=== PATIENT | female | born 1970 | race Caucasian/White ===

== ENCOUNTER 2019-05-17 08:57 | Emergency (ER) | payer SELFPAY ==
[~2019-05-17] VITALS: Ht 170.2 cm; Wt 86.2 kg
--- OUTSIDE RECORDS SUMMARY | ~2019-05-17 | XMS | Encounter Summary ---
Demographics + + + | Address | [address] | | | [place] [address] | + + + | Home Phone | | + + + | Preferred Language | Unknown | + + + | Marital Status | | + + + | Alevism Affiliation | 1041 | + + + | Race | Unknown | + + + | Ethnic Group | Unknown | + + + Author + + + | Author | [facility] | | | and [place] | + + + | Organization | [facility] | | | and [place] | + + + | Address | Unknown | + + + | Phone | Unavailable | + + + Support + + +---------+ + | Name | Relationship | Address | Phone | + + +---------+ + | Fredy Ayers | ECON | Unknown | | + + +---------+ + Care Team Providers + +------+ + | Care Vocal Performer Name | Role | Phone | + +------+ + | Sharita Wise | PCP | | + +------+ + Reason for Visit + + + | Reason | Comments | + + + | Follow-up | | + + + Follow Up (Routine) + +--------+ + + + + | Status | Reason | Specialty | Diagnoses / | Referred By | Referred To | | | | | Procedures | Contact | Contact | + +--------+ + + + + | Authorized | | Physical | Diagnoses | Wise, | Palmer, | | | | Medicine and | Low back | NIVIA Sheriff | Ha Trivedi MD | | | | Rehabilitatio | pain | [address] | | | | n | | [facility], | [facility] | | | | | | [address] | [place] | | | | | | [place], | [address] Phone: | | | | | | [place] [address] | [phone] | | | | | | Phone: | Fax: | | | | | | [phone] | [phone] | | | | | | Fax: | | | | | | | [phone] | | + +--------+ + + + + Encounter Details +--------+---------+ + + + | Date | Type | Department | Care Team | Description | +--------+---------+ + + + | 04/24/ | Office | [facility] | Mignon Serrano | Lumbar radiculopathy | | 2019 | Visit | PHYSIATRY [address] | HAMZAH Phelan [address] | (Primary Dx); [address] | | | | [address] [place], | [address] | of lumbar disc | | | | [place] [address] | [address] [place], [place] | without myelopathy; | | | | [phone] | [address] | Obesity (BMI | | | | | | 30-39.9) | +--------+---------+ + + + Social History + + + +--------+ + | Tobacco Use | Types | Packs/Day | Years | Date | | | | | Used | | + + + +--------+ + | Former Smoker | Cigarettes | 1 | 20 | 01/14/1997 - | | | | | | 09/27/2018 | + + + +--------+ + + +---+---+---+ | Smokeless Tobacco: | | | | | Former User | | | | + +---+---+---+ + + +---------+ + | Alcohol Use | Drinks/Week | oz/Week | Comments | + + +---------+ + | Yes | | | occasionally | + + +---------+ + + + + | Sex Assigned at | Date Recorded | | | | + + + | Not on file | | + + + + + + + | Job Start Date | Occupation | Industry | + + + + | Not on file | Not on file | Not on file | + + + + + + + + | Travel History | Travel Start | Travel End | + + + + + + | No recent travel history available. | + + documented as of this encounter Last Filed Vital Signs + + + + + | Vital Sign | Reading | Time Taken | Comments | + + + + + | Blood Pressure | 137/74 | 04/24/2019 9:52 AM | | | | | PST | | + + + + + | Pulse | 60 | 04/24/2019 9:52 AM | | | | | PST | | + + + + + | Temperature | - | - | | + + + + + | Respiratory Rate | - | - | | + + + + + | Oxygen Saturation | - | - | | + + + + + | Inhaled Oxygen | - | - | | | Concentration | | | | + + + + + | Weight | 107.5 kg (237 lb) | 04/24/2019 9:52 AM | | | | | PST | | + + + + + | Height | 165.1 cm (5' 5") | 04/24/2019 9:52 AM | | | | | PST | | + + + + + | Body Mass Index | 39.44 | 04/24/2019 9:52 AM | | | | | PST | | + + + + + documented in this encounter Patient Instructions Patient Instructions Mignon Serrano PA-C - 04/24/2019 10:00 AM PST1. A left and ri ght side epidural steroid injection at L4 order has been placed. We will call you to madelaine recinos once authorized. 2. We may need to get a lumbar MRI if your numbness in the left thigh persists or you deve lop weakness. Follow-up at the hospital thirty minutes before your scheduled procedure to allow for time to check in. You may eat and drink as usual on the day of the procedure. If you are scheduled for an epidural injection do not take any blood thinning medications f or at least 5-7 days prior to your procedure unless you have been instructed by another phys ician not to discontinue blood thinning medications. If you are having a procedure other than an epidural injection (i.e. facet injection, media l branch block, SI joint injection or other joint injection) it is not absolutely necessary to discontinue blood thinning medications but doing so will decrease the risk of bruising or bleeding. If you have had a prior stroke, DVT or PE or if you are taking blood thinning medication be cause you have atrial fibrillation, a prosthetic cardiac valve replacement or heart stenting do not stop taking your blood thinning medications unless you have permission from your car diologist or primary care provider. All other medications should be taken as usual on the day of the procedure. Common blood thinning medications include: Aspirin (a baby aspirin is o.k.) Ibuprofen (Advil or Motrin) Naproxen (Aleve) Nabumetone (Relafen) Clopidogrel (Plavix) Dipyridamole/ASA (Aggrenox) Warfarin (Coumadin) Dabigatran (Pradaxa) Rivaroxaban (Xarelto) There are many others. If you have questions about your medications and whether or not you should stop any medications please contact our office. If you are having an epidural injection or if you take any medication for relaxation/sedati on on the day of the procedure you must provide a yard driver to take you home. For all procedur es it is recommended that someone else drive you home. documented in this encounter Progress Notes Mignon Serrano PA-C - 04/24/2019 10:00 AM PSTFormatting of this note might be diffe rent from the original. Zhane Serrano PA-C [address] [facility], [address] [place], [place] [id number] FAX: PHYSICAL MEDICINE AND REHABILITATION H&P CHIEF COMPLAINT: Chief Complaint Patient presents with Follow-up HISTORY OF PRESENT ILLNESS: The patient is a 48 y.o. female being seen today for complaint s of right side low back pain with radiation into the right leg that began August 2016 from n o known injury or insult. Patient was last seen for this on 02/27/2019 where we discussed r epeating right sided TFESI L4-5. At the time her pain was not severe and just recurring so she elected to wait on scheduling this injection. Today she presents with complaints of new left lower extremity pain and numbness in the lateral thigh ending at the knee. Patient underwent physical therapy in 2017 prior to injections. Her pain was so severe lee t she had to take off work for 2 months to help heal. Her MRI shows a disc extrusion causin g severe right neuroforaminal narrowing causing her pain. Since she was last seen she has q uit smoking x5 months. Since the symptoms began, she has noticed that symptoms have been progressive to include le ft lateral thigh pain and numbness. She is having a difficult time getting in and out of he r vehicle. She describes the pain as a aching, numbing and throbbing feeling. She rates the pain as mild to moderate. Her symptoms worsen with prolonged standing, walking, sitting. He r symptoms improve with changing position often, lying down, leaning forward. The patient also describes leg symptoms that occur on right side. The leg symptoms account for greater than or equal to 75% of her symptoms. The leg symptoms are in an L4 dermatome bilateral at this time include some pain and numbness. She has chronic sensation changes in the right anterior tibialis and acute sensation changes and numbness left lateral thigh. She does not report weakness of the right leg with extreme pain. She does not have bowel a nd bladder dysfunction. She does not have saddle anesthesia. Treatments for these complaints have included physical therapy at [facility], use of gabapentin 600mg at night which she states helps her sleep but does not help with pain, use of cyclobenzaprine, use of Medrol dose pack which did not help, use of a friends Oxycodone which did help but her PCP does not want to start her on narcotics, previous tramadol shot a nd unguided right SI joint injection which was uneffective, use of NSAIDS and a TFESI which was successful on 02/04/2017. Patient's medications, allergies, past medical, surgical, social and family histories were reviewed and updated as appropriate. PAST MEDICAL HISTORY: Past Medical History: Diagnosis Date Bulge of lumbar disc without myelopathy 01/26/2017 Chronic constipation Chronic right-sided low back pain with right-sided sciatica 01/19/2017 Diabetes mellitus (HCC) Edema Hypertension Low back pain Lumbar radiculopathy - right L4/L5 01/26/2017 Muscle spasm of back Nicotine dependence Sacroiliitis (HCC) Right side Tobacco use PAST SURGICAL HISTORY: Past Surgical History: Procedure Laterality Date APPENDECTOMY 2000 [facility] COLONOSCOPY 01/19/2013 One polyp CURRENT MEDICATIONS: Current Outpatient Medications Medication Sig Dispense Refill escitalopram (LEXAPRO) 10 mg tablet famotidine (PEPCID) 20 mg tablet Take 20 mg by mouth. gabapentin (NEURONTIN) 300 mg capsule Take 600 mg by mouth nightly. hydroCHLOROthiazide (HYDRODIURIL) 12.5 MG tablet LORazepam (ATIVAN) 1 mg tablet losartan-hydrochlorothiazide (HYZAAR) 50-12.5 MG per tablet medroxyPROGESTERone (DEPO-PROVERA) 150 mg/mL injection (vial) Inject 150 mg into the mu scle Every 3 months. metFORMIN (GLUCOPHAGE) 500 mg tablet traMADol (ULTRAM) 50 mg tablet 0 No current facility-administered medications for this visit. ALLERGIES: No Known Allergies SOCIAL HISTORY: The patient reports that she quit smoking about 6 months ago. Her smoking use included cig arettes. She started smoking about 22 years ago. She has a 20.00 pack-year smoking history. She has quit using smokeless tobacco. She reports current alcohol use. She reports that she does not use drugs. FAMILY HISTORY: Family History Problem Relation Age of Onset Stroke Mother Kidney disease Mother Other (see comment) Mother Brain Tumor Diabetes Mother Arthritis Mother Heart attack Father 56 Thyroid disease Sister Breast cancer Maternal Grandmother 30 Heart disease Maternal Grandfather Diabetes Paternal Grandfather Diabetes Paternal Grandmother REVIEW OF SYSTEMS: GENERALLY: No fever, chills, no night sweats, no weight gain, no weight loss, no anemia, no fatigue. EYES: No eye problems, no impaired sight, no eye glasses/contacts, no eye injury, no doubl e vision, no transient blindness. 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 NEUROMUSCULAR: No numbness/pain of arms, + numbness/pain of legs, no awake with numbness/p ain, + weakness, + muscle aching, no coordination difficulty, + change in walk, no head inju ry, no neck injury, no back injury, no pain in neck, + pain in back, no stroke, no fainting spells, no loss of consciousness, no tremor/shaking, no seizures, no headaches, no migraines , no memory loss, no speech difficulty, no confusion, no numbness of face. PSYCHIATRIC: No depression, no difficulty sleeping, +anxiety, no bipolar disorder. CARDIOVASCULAR/PULMONARY: No heart attack, no heart murmur, no fluttering heart, no shortn ess of breath, no cough, no Tuberculosis, no chest pain, no swelling ankles, no bloody cough ing, no asthma, no COPD/emphysema. GASTROINTESTINAL: No bowel disease, no nausea/vomiting, no rectal bleeding/hemorroids, no constipation, no fecal/stool incontinence, no liver/gallbladder disease, no abdominal pain. KIDNEY DISEASE: No frequent urination, no painful/difficult with urination, no urinary inco ntinence, no bladder problems, no impotence, no irregular period, no vaginal discharge. ENDOCRINE: No diabetes, no thyroid disease, no osteoporosis/osteopenia, no drainage from br easts. INTEGUMENTARY/SKIN: No lump in breasts, no skin disease or skin changes, no rash/itch. HEMATOLOGIC: No enlarged lymph nodes, no ease or unusual bleeding, no cancer. RHEUMATOLOGIC: No joint pain/arthritis, no Rheumatoid Arthritis PHYSICAL EXAMINATION: Vitals: 04/24/19 0952 BP: 137/74 Pulse: 60 PainSc: 2 PainLoc: Back Body mass index is 39.44 kg/m. GENERAL: The patient is well developed and well nourished. She does not appear uncomfortab le when seated. HEENT: HEAD/FACE: EYES: EARS: NASOPHARNYX: OROPHARNYX: Normocephalic and atraumatic. There are no areas of recent trauma. Normal sclerae without icterus. No drainage or tenderness. Clear without drainage. Clear without erythema. SKIN Limited skin exam shows no significant rashes or lesions. There are not scars in the lumbar region. CHEST: The patient is in no acute respiratory distress with unlabored respirations. HEART: There is not lower extremity edema. ABDOMEN: The patient is overweight. She reports having lost 25 pounds. MUSCULOSKELETAL There is no tenderness in the midline of the cervical or thoracic spine. T here is no major palpable deformity of the spine. Straight leg raise was negative on right and slump-sit are negative. Arthur's maneuver an d impingement testing were negative for any groin pain. There was no tenderness to palpati on over the greater trochanters or sacral sulci. The patient localized the majority of the pain to the L4-5 bilateral region. Lumbar facet loading was negative. Strength testing ariela wed 5/5 strength throughout the lower extremities. The patient was able to heel and toe wal k without difficulty. RADIOGRAPHIC REVIEW: The patient's imaging was reviewed in detail with the patient today during the visit. Lumb ar xray in AP and Lateral view from shows good vertebral alignment, good disc space between vertebra. ASSESSMENT: 1. Lumbar radiculopathy 2. Bulge of lumbar disc without myelopathy 3. Obesity (BMI 30-39.9) PLAN: 1. Patient is a 48-year-old who was last seen for TFESI right L4-5 on 02/04/2017 who return s today to report that she had exceptional relief for almost 2 years. At last presentation February 27, 2019 she was having recurrence of right-sided lower extremity pain and presents today with reports of left-sided L4 radiculopathy including numbness and pain in the lateral thigh ending at the knee. Patient has agreed to undergo change in her TFESI order to bilat eral at L4-5. 2. Patient has been able to stay off of pain medications and adjuvant medications except f or gabapentin. She will continue the gabapentin and is currently taking this at 600 mg at [facility]. 3. Patient has successfully quit smoking and is working on weight loss. She will continue with weight loss efforts 4. Patient will follow up as needed. We did discuss considering an MRI if her left leg nu mbness persists or progresses to weakness. ELECTRONICALLY SIGNED BY: Julio Serrano PA-C, 04/24/2019 CC: Sharita Wise documented in this encounter Plan of Treatment Not on filedocumented as of this encounter Results FL AGUSTINA Lumbar Sacral Transforaminal (05/10/2019 11:27 AM PST) + + | Specimen | + + | | + + + + -+ | Narrative | Performed At | + + -+ | 05/10/2019 | [facility] | | Bilateral Transforaminal Epidural Steroid Injections Diagnosis: Lumbar | | | radiculopathy ICD-10 Code M54.16 Katalina Ayers presents to the | | | fluoroscopy suite for fluoroscopically-guided bilateral L4-L5 | | | transforaminal epidural steroid injections as part of conservative | | | management for chronic pain with lumbar radiculopathy and degenerative | | | disc disease. After informed consent was obtained, the patient lay in | | | the prone position on the fluoroscopy table. The areas were | | | identified under fluoroscopic guidance. The areas were prepped and | | | draped in sterile fashion. A 25-gauge, 1.5-inch needle was inserted | | | into each region and approximately 3 mL of buffered 1% lidocaine was | | | infused. Then, a 22-gauge spinal needle was inserted into the | | | posterior superior transforaminal space bilaterally and advanced into | | | the epidural space under fluoroscopic guidance. Confirmation into the | | | epidural space was obtained with infusion of approximately 1 mL of | | | Omnipaque contrast which showed epidural flow as well as nerve sheath | | | flow. Then, a combination of 2 mL of 1% lidocaine and 1.5 mL of 10 | | | mg/mL dexamethasone was infused, divided between the two sides. The | | | patient tolerated the procedure well without complications. Pre- and | | | post-procedure blood pressures were stable. The patient was given | | | verbal as well as written follow-up instructions. Prior to the start | | | of the procedure, the following were performed and/or verified, | | | including correct patient identity, correct site/side marked and | | | visible, agreement on the procedure to be done, correct patient | | | positioning and an accurate procedure consent form. Any safety | | | precautions based on clinical history and/or medication use have been | | | addressed. I personally performed the procedure above. Estimated blood | | | loss: MinimalComplications: NoneFindings: As expectedAnesthesia: | | | Local 1% Lidocaine | | |visible, agreement on the procedure to be done, correct patient | | |positioning and an accurate procedure consent form. Any safety precautions | | |based on clinical history and/or medication use have been addressed. I | | |personally performed the procedure above. | | | | | |Estimated blood loss: Minimal | | |Complications: None | | |Findings: As expected | | |Anesthesia: Local 1% Lidocaine | | | | | | | | + + -+ + +---------+ + + | Performing | Address | City/State/Zipcode | Phone Number | | Organization | | | | + +---------+ + + | [facility] | | | | + +---------+ + + documented in this encounter Visit Diagnoses + + | Diagnosis | + + | Lumbar radiculopathy - Primary Thoracic or lumbosacral neuritis or radiculitis, | | unspecified | + + | Bulge of lumbar disc without myelopathy Displacement of lumbar intervertebral disc | | without myelopathy | + + | Obesity (BMI 30-39.9) Obesity, unspecified | + + documented in this encounter
--- OUTSIDE RECORDS SUMMARY | ~2019-05-17 | XMS | Encounter Summary ---
Demographics + + + | Address | [address] | | | [place] [address] | + + + | Home Phone | | + + + | Preferred Language | Unknown | + + + | Marital Status | | + + + | Christianity Affiliation | 1041 | + + + | Race | Unknown | + + + | Ethnic Group | Unknown | + + + Author + + + | Author | [facility] | | | and [place] | + + + | Organization | [facility] | | | and [...] Team Providers + +------+ + | Care Car Dumper Operator Helper Name | Role | Phone | + +------+ + | Sharita Wise | PCP | | + +------+ + Encounter Details +--------+ + + + + | Date | Type | Department | Care Team | Description | +--------+ + + + + | 12/30/ | Imaging | [facility] | April, | | | 2017 | Exam | [facility] | [address] | | | | | IMAGING | [place] | | | | | [phone] | [place] [address] | | +--------+ + + + + Social History + +-------+ +--------+------+ | Tobacco Use | Types | Packs/Day | Years | Date | | | | | Used | | + +-------+ +--------+------+ | Never Assessed | | | | | + +-------+ +--------+------+ + + + | Sex Assigned at [...] + + documented as of this encounter Plan of Treatment Not on filedocumented as of this encounter Procedures + +--------+ + + + | Procedure Name | Priori | Date/Time | Associated Diagnosis | Comments | | | ty | | | | + +--------+ + + + | XR LUMBAR SPINE 4 + | Routin | 12/29/2016 | | Results for this | | VW | e | 3:35 PM | | procedure are in the | | | | PDT | | results section. | + +--------+ + + + documented in this encounter Results XR Lumbar Spine 4 + Vw (12/29/2016 3:35 PM PDT) + + | Specimen | + + | | + + + + + | Narrative | Performed At | + + + | External films for comparison only - no result from [facility]. | [facility] | + + + + +---------+ + + | Performing | Address | City/State/Zipcode | Phone Number | | Organization | | | | + +---------+ + + | [facility] | | | | + +---------+ + + documented in this encounter Visit Diagnoses Not on filedocumented in this encounter"
--- OUTSIDE RECORDS SUMMARY | ~2019-05-17 | XMS | Encounter Summary ---
Demographics + + + | Address | [address] | | | [place] [address] | + + + | Home Phone | | + + + | Preferred Language | Unknown | + + + | Marital Status | | + + + | Yazidism Affiliation | 1041 | + + + | Race | Unknown | + + + | Ethnic Group | Unknown | + + + Author + + + | Author | [facility] | | | and [place] | + + + | Organization | [facility] | | | and [...] Team Providers + +------+ + | Care Executive Vice President Of Sales Name | Role | Phone | + +------+ + | Sharita Wise | PCP | | + +------+ + Reason for Visit + + + | Reason | Comments | + + + | Injections | | + + + Encounter Details +--------+ + + + + | Date | Type | Department | Care Team | Description | +--------+ + + + + | 05/16/ | Telephone | [facility] [place] | Mignon Serrano | Injections | | 2020 | | PHYSIATRY [address] | HAMZAH Phelan [address] | | | | | [address] [place], | [address] [facility] | | | | | [place] [address] | [address] [place], [place] | | | | | [phone] | [address] | | | | | | | | +--------+ + + + + Social History + + [...] Not on filedocumented as of this encounter Visit Diagnoses Not on filedocumented in this encounter"
--- OUTSIDE RECORDS SUMMARY | ~2019-05-17 | XMS | Encounter Summary ---
Demographics + + + | Address | [address] | | | [place] [address] | + + + | Home Phone | | + + + | Preferred Language | Unknown | + + + | Marital Status | | + + + | Mandaeism Affiliation | 1041 | + + + | Race | Unknown | + + + | Ethnic Group | Unknown | + + + Author + + + | Author | [facility] | | | and [place] | + + + | Organization | [facility] | | | [...] Team Providers + +------+ + | Care Camouflage Assembler Name | Role | Phone | + [...] | | | | n | | [facility] | [facility] | | | | | | [address] | [place] | | | | | | [place], | [address] Phone: | | | | | | [place] [address] | [phone] | | | | | | Phone: | Fax: | | | | | | [phone] | [phone] | | | | | | Fax: | | | | | | | [phone] | | + +--------+ + + + [...] (Primary Dx); Bulge | | | | [place], | [address] | of lumbar disc | | | | [place] [address] | [address] [place], [place] | without myelopathy; | | | | [phone] | [address] | Obesity (BMI | | | | [...] of the procedure you must provide a transporter driver to take you home. For all procedur es it is recommended that someone else drive you home. documented in this encounter Progress Notes Mignon Serrano PA-C - 04/24/2019 10:00 AM PSTFormatting of this note might be diffe rent from the original. Zhane Serrano PA-C [address] [facility] [address] [place], [place] [id number] FAX: PHYSICAL MEDICINE AND REHABILITATION H&P CHIEF [...] these complaints have included physical therapy at [facility], use of gabapentin 600mg at night which [...] Surgical History: Procedure Laterality Date APPENDECTOMY [address] [facility] COLONOSCOPY 01/19/2013 One polyp CURRENT MEDICATIONS: [...] currently taking this at 600 mg at [facility]. 3. Patient has successfully quit smoking [...]
--- OUTSIDE RECORDS SUMMARY | ~2019-05-17 | XMS | Encounter Summary ---
Demographics + + + | Address | [address] | | | [place] [address] | + + + | Home Phone | | + + + | Preferred Language | Unknown | + + + | Marital Status | | + + + | Taoism Affiliation | 1041 | + + + | Race | Unknown | + + + | Ethnic Group | Unknown | + + + Author + + + | Author | [facility] | | | and [place] | + + + | Organization | [facility] | | | and [...] Team Providers + +------+ + | Care Equipment Operator/Laborer Name | Role | Phone | + +------+ + | Sharita Wise | PCP | | + +------+ + Reason for Visit Diagnostic/Screening (Routine) +--------+--------+ + + + + | Status | Reason | Specialty | Diagnoses / | Referred By | Referred To | | | | | Procedures | Contact | Contact | +--------+--------+ + + + + | Closed | | Radiology | Procedures | Provider, | | | | | | MRI Lumbar | Historical, | | | | | | Spine wo | [address] | | | | | | Contrast | [address] | | | | | | | [place] | | | | | | | [address] | | +--------+--------+ + + + + Encounter Details +--------+ + + + + | Date | Type | Department | Care Team | Description | +--------+ + + + + | 01/28/ | Imaging | [facility] | Provider, | | | 2017 | Exam | MED CTR EXTERNAL | MD [address] | | | | | IMAGING | [place] | | | | | [phone] | [place] [address] | | +--------+ + + + + Social History + + + +--------+ + | Tobacco Use | Types | Packs/Day | Years | Date | | | | | Used | | + + + +--------+ + | Current Every Day | Cigarettes | 1 | 20 | Started: 01/14/1997 | | Smoker | | | | | + + + +--------+ + + + +---------+ + | Alcohol Use [...] | + +--------+ + + + | MRI LUMBAR SPINE WO | Routin | 01/22/2017 | | Results for this | | CONTRAST | e | 8:15 AM | | procedure are in the | | | | PDT | | results section. | + +--------+ + + + documented in this encounter Results MRI Lumbar Spine wo Contrast (01/22/2017 8:15 AM PDT) + + | Specimen | + + | | + + + + + | Narrative | Performed At | + + + | External films | [facility] | | for comparison only - no result from [place]. | | + + + + +---------+ + + | Performing | Address | City/State/Zipcode | Phone Number | | Organization | | | | + +---------+ + + | [facility] | | | | + +---------+ + + documented in this encounter Visit Diagnoses Not on filedocumented in this encounter"
--- OUTSIDE RECORDS SUMMARY | ~2019-05-17 | XMS | Encounter Summary ---
Demographics + + + | Address | [address] | | | [place] [address] | + + + | Home Phone | | + + + | Preferred Language | Unknown | + + + | Marital Status | | + + + | Sabianism Affiliation | 1041 | + + + | Race | Unknown | + + + | Ethnic Group | Unknown | + + + Author + + + | Author | [facility] | | | and [place] | + + + | Organization | [facility] | | | [...] Team Providers + +------+ + | Care Consumer Educator Name | Role | Phone | + +------+ + | Sharita Wise | PCP | | + +------+ + Reason for Visit Service/Procedure (Routine) +--------+--------+ + + + + | Status | Reason | Specialty | Diagnoses / | Referred By | Referred To | | | | | Procedures | Contact | Contact | +--------+--------+ + + + + | Closed | | Radiology | Diagnoses | | [facility] | | | | | Lumbar | [place], | [address] | | | | | radiculopath | Ha Trivedi MD | [place], | | | | | y | [address] | [place] | | | | | Procedures | [address] | [address] | | | | | [place] INJECT | [place], [place] | Phone: | | | | | ANES/STEROID | [address] | [phone] | | | | | FORAMEN | Phone: | Fax: | | | | | LUMBAR/SACRA | [phone] | [phone] | | | | | L [address] IMG | Fax: | | | | | | GUIDE ,1 | [phone] | | | | | | LEVEL ME | | | | | | | TRIAMCINOLON | | | | | | | E ACET INJ | | | | | | | NOS, 10 MG | | | | | | | right L4/L5 | | | | | | | TFESI | | | +--------+--------+ + + + + Encounter Details +--------+ + + + + | Date | Type | Department | Care Team | Description | +--------+ + + + + | 02/04/ | Hospital | [facility] | Ayse, | Lumbar radiculopathy | | 2017 | Encounter | MED CTR XRAY [address] | [address]AMZAH [address] | - right L4/L5; | | | | [place] | [address] | Bulge of lumbar disc | | | | [place] [address] | [place] [address] | without myelopathy | | | | [phone] | | | | | | | | | | | | Field Service Poultry TechnicianEmigdio | | +--------+ + + + + [...] this encounter Last Filed Vital Signs + +---------+ + + | Vital Sign | Reading | Time Taken | Comments | + +---------+ + + | Blood Pressure | 186/116 | 02/04/2017 5:00 PM | | | | | PDT | | + +---------+ + + | Pulse | - | - | | + +---------+ + + | Temperature | - | - | | + +---------+ + + | Respiratory Rate | - | - | | + +---------+ + + | Oxygen Saturation | - | - | | + +---------+ + + | Inhaled Oxygen | - | - | | | Concentration | | | | + +---------+ + + | Weight | - | - | | + +---------+ + + | Height | - | - | | + +---------+ + + | Body Mass Index | - | - | | + +---------+ + + documented in this encounter Medications at Time of Discharge + + + +---------+--------+ + | Medication | Sig | Dispensed | Refills | Start | End Date | | | | | | Date | | + + + +---------+--------+ + | | Inject 150 mg into | | 0 | | | | medroxyPROGESTERone | the muscle Every 3 | | | | | | (DEPO-PROVERA) 150 | months. | | | | | | mg/mL injection | | | | | | | (vial) | | | | | | + + + +---------+--------+ + | buPROPion | Take 150 mg by mouth | | 0 | | | | (WELLBUTRIN SR) 150 | 2 times daily. | | | | 9 | | mg 12 hr tablet | | | | | | + + + +---------+--------+ + | CALCIUM CITRATE PO | Take by mouth. | | 0 | | 12/23/201 | | | | | | | 9 | + + + +---------+--------+ + | famotidine | Take 20 mg by mouth | | 0 | | | | (PEPCID) 20 mg | as needed. | | | | 9 | | tablet | | | | | | + + + +---------+--------+ + | furosemide (LASIX) | Take 20 mg by mouth | | 0 | | | | 20 mg tablet | 2 times daily. | | | | 9 | + + + +---------+--------+ + | gabapentin | Take 600 mg by mouth | | 0 | | | | (NEURONTIN) 300 mg | nightly. | | | | 0 | | capsule | | | | | | + + + +---------+--------+ + | metoprolol | Take 50 mg by mouth | | 0 | | | | succinate | Daily. | | | | 9 | | (TOPROL-XL) 25 mg 24 | | | | | | | hr tablet | | | | | | + + + +---------+--------+ + documented as of this encounter Plan of Treatment Not on filedocumented as of this encounter Procedures + +--------+ + + + | Procedure Name | Priori | Date/Time | Associated Diagnosis | Comments | | | ty | | | | + +--------+ + + + | FL EPIDURAL STEROID | Routin | 02/04/2017 | Lumbar | Results for this | | INJECTION LUMBAR | e | 4:49 PM | radiculopathy - | procedure are in the | | TRANSFORAMINAL | | PDT | right L4/L5 [place] | results section. | | | | | of lumbar disc | | | | | | without myelopathy | | + +--------+ + + + documented in this encounter Results FL AGUSTINA Lumbar Transforaminal (02/04/2017 4:49 PM PDT) + + | Specimen | + + | | + + + + + | Narrative | Performed At | + + + | 02/04/2017 | [facility] | | Transforaminal Epidural Steroid InjectionDiagnosis: Lumbar | | | radiculopathyICD-10 Code M54.16 Katalina Ayers presents to the | | | fluoroscopy suite for a fluoroscopically-guided right L4-L5 | | | transforaminal epidural steroid injection as part of conservative | | | management for chronic pain with lumbar radiculopathy and degenerative | | | disk disease. After informed consent was obtained, the patient lay | | | in the prone position on the fluoroscopy table. The area was | | | identified under fluoroscopic guidance. The area was prepped and | | | draped in sterile fashion. A 25-gauge, 1.5-inch needle was inserted | | | into this region and approximately 3 mL of buffered 1% lidocaine was | | | infused. Then, a 22-gauge spinal needle was inserted into the | | | posterior superior transforaminal space and advanced into the epidural | | | space under fluoroscopic guidance. Confirmation into the epidural | | | space was obtained with infusion of approximately 1 mL of Omnipaque | | | contrast which showed epidural flow as well as nerve sheath flow. | | | Then, a combination of 1.5 mL of 1% lidocaine and 1 mL of 10 | | | mg/mL Dexamethasone was infused. The patient tolerated the procedure | | | well without complications. Pre- and post-procedure blood pressures | | | were stable. The patient was given verbal as well as written | | | follow-up instructions. Prior to the start of the procedure, the | | | following were performed and/or verified, including correct patient | | | identity, correct site/side marked and visible, agreement on the | | | procedure to be done, correct patient positioning and an accurate | | | procedure consent form. Any safety precautions based on clinical | | | history and/or medication use have been addressed. I personally | | | performed the procedure above. Estimated blood loss: | | | MinimalComplications: NoneFindings: As expectedAnesthesia: Local | | | 1% Lidocaine | | |addressed. | | |I personally performed the procedure above. | | | | | |Estimated blood loss: Minimal | | |Complications: None | | |Findings: As expected | | |Anesthesia: Local 1% Lidocaine | | | | | + + + + +---------+ + + | Performing | Address | City/State[facility] | Phone Number | | Organization | | | | + +---------+ + + | [facility] | | | | + +---------+ + + documented in this encounter Visit Diagnoses + + | Diagnosis | + + | Lumbar radiculopathy - right L4/L5 Thoracic or lumbosacral neuritis or radiculitis, | | unspecified | + + | Bulge of lumbar disc without myelopathy Displacement of lumbar intervertebral disc | | without myelopathy | + + documented in this encounter Administered Medications + +--------+ +-------+------+------+ | Medication Order | MAR | Action | Dose | Rate | Site | | | Action | Date | | | | + +--------+ +-------+------+------+ | dexamethasone (PF) 10 mg/mL | Given | 02/05/20 | 10 mg | | | | injection 10 mg 10 mg, Other, | | 17 5:00 | | | | | ONCE, [facility] 02/04/17 at 1715, For 1 | | PM PDT | | | | | dose | | | | | | + +--------+ +-------+------+------+ +---+---+ | | | +---+---+ + +-------+ +-------+---+---+ | iohexol (OMNIPAQUE 300) 300 | Given | 02/05/20 | 4 mLs | | | | mg/mL injection 4 mL 4 mL, | | 17 4:55 | | | | | Other, ONCE, Ioana 02/04/17 at 1715, | | PM PDT | | | | | For 1 dose | | | | | | + +-------+ +-------+---+---+ +---+---+ | | | +---+---+ + +-------+ +-------+---+---+ | lidocaine (PF) 1% injection 2 | Given | 02/05/20 | 2 mLs | | | | mL 2 mL, Other, ONCE, Ioana | | 17 5:00 | | | | | 02/04/17 at 1715, For 1 dose | | PM PDT | | | | + +-------+ +-------+---+---+ +---+---+ | | | +---+---+ + +-------+ +-------+---+---+ | lidocaine buffered 1% injection | Given | 02/05/20 | 5 mLs | | | | 5 mL 5 mL, Other, ONCE, Ioana | | 17 4:50 | | | | | 02/04/17 at 1715, For 1 dose | | PM PDT | | | | + +-------+ +-------+---+---+ +---+---+ | | | +---+---+ documented in this encounter"
--- OUTSIDE RECORDS SUMMARY | ~2019-05-17 | XMS | Encounter Summary ---
Demographics + + + | Address | [address] | | | [place] [address] | + + + | Home Phone | | + + + | Preferred Language | Unknown | + + + | Marital Status | | + + + | Zoroastrian Affiliation | 1041 | + + + | Race | Unknown | + + + | Ethnic Group | Unknown | + + + Author + + + | Author | [facility] | | | and [place] | + + + | Organization | [facility] | | | [...] Team Providers + +------+ + | Care Manager Reporting Name | Role | Phone | + [...] | Lumbar | [place], | [address] | | | | | radiculopath | Ha Trivedi MD | [place], | | | | | y | [address] | [place] | | | | | Procedures | [address] | [address] | | | | | [place] INJECT | [place], [place] | Phone: | | | | | ANES/STEROID | [address] | [phone] | | | | | FORAMEN | Phone: | Fax: | | | | | LUMBAR/SACRA | [phone] | [phone] | | | | | L [address] IMG | Fax: | | | | | | GUIDE ,1 | [phone] | | | | | | LEVEL [place] | | | | | | | [...] + + | 02/04/ | Hospital | [facility] | Ayse, | Lumbar radiculopathy | | 2017 | Encounter | MED CTR XRAY [address] | [address] | - right L4/L5; | | | | [place] | [address] | Bulge of lumbar disc | | | | [place] [address] | [place] [address] | without myelopathy | | | | [phone] | [phone] | | | | | | | | | | | | Marking Devices AssemblerEmigdio | | +--------+ + + + + [...] + + | Performing | Address | City/State/[facility] | Phone Number | | Organization | [...] 5:00 | | | | | ONCE, [facility] 02/04/17 at 1715, For 1 | [...]
--- OUTSIDE RECORDS SUMMARY | ~2019-05-17 | XMS | Encounter Summary ---
Demographics + + + | Address | [address] | | | [place] [address] | + + + | Home Phone | | + + + | Preferred Language | Unknown | + + + | Marital Status | | + + + | Latter Day Affiliation | 1041 | + + + | Race | Unknown | + + + | Ethnic Group | Unknown | + + + Author + + + | Author | [facility] | | | and [place] | + + + | Organization | [facility] | | | [...] Team Providers + +------+ + | Care Panelboard Tank Pumper Name | Role | Phone | + +------+ + | Sharita Wise | PCP | | + +------+ + Encounter Details +--------+ + + + + | Date | Type | Department | Care Team | Description | +--------+ + + + + | 02/27/ | [facility] | [facility] | Mignon Serrano | Cervical | | 2019 | Encounter | MED CTR XRAY [address] | [address] | radiculopathy | | | | [place] | [facility] | | | | | [place] [address] | [address] | | | | | [phone] | [address] | | | | | | | [...] + + documented as of this encounter Medications at Time of Discharge + + + +---------+ + + | Medication | Sig | Dispensed | Refills | Start | End Date | | | | | | Date | | + + + +---------+ + + | escitalopram | | | 0 | 20 | | | (LEXAPRO) 10 mg | | | | 19 | | | tablet | | | | | | + + + +---------+ + + | famotidine | Take 20 mg by mouth. | | 0 | | | | (PEPCID) 20 mg | | | | | | | tablet | | | | | | + + + +---------+ + + | LORazepam (ATIVAN) | | | 0 | 09/29/19 | | | 1 mg tablet | | | | 19 | | + + + +---------+ + + | | | | 0 | 02/14/20 | | | losartan-hydrochloro | | | | 19 | | | thiazide (HYZAAR) | | | | | | | 50-12.5 MG per | | | | | | | tablet | | | | | | + + + +---------+ + + | | Inject 150 mg into | | 0 | | | | medroxyPROGESTERone | the muscle Every 3 | | | | | | (DEPO-PROVERA) 150 | months. | | | | | | mg/mL injection | | | | | | | (vial) | | | | | | + + + +---------+ + + | metFORMIN | | | 0 | 02/16/20 | | | (GLUCOPHAGE) 500 mg | | | | 19 | | | tablet | | | | | | + + + +---------+ + + | traMADol (ULTRAM) | | | 0 | 02/14/20 | | | 50 mg tablet | | | | 19 | | + + + +---------+ + + | buPROPion | Take 150 mg by mouth | | 0 | | | | (WELLBUTRIN SR) 150 | 2 times daily. | | | | 9 | | mg 12 hr tablet | | | | | | + + + +---------+ + + | CALCIUM CITRATE PO | Take by mouth. | | 0 | | | | | | | | | 9 | + + + +---------+ + + | CHANTIX CONTINUING | | | 0 | 10/08/19 | | | MONTH NEVA 1 MG | | | | 19 | 9 | | tablet | | | | | | + + + +---------+ + + | CHANTIX STARTING | | | 0 | 06/27/19 | | | MONTH NEVA 0.5 MG X | | | | 19 | 9 | | 11 & 1 MG X 42 | | | | | | | tablet | | | | | | + + + +---------+ + + | escitalopram | | | 0 | 08/24/19 | | | (LEXAPRO) 5 MG | | | | 18 | 9 | | tablet | | | | | | + + + +---------+ + + | famotidine | Take 20 mg by mouth | | 0 | | | | (PEPCID) 20 mg | as needed. | | | | 9 | | tablet | | | | | | + + + +---------+ + + | furosemide (LASIX) | Take 20 mg by mouth | | 0 | | | | 20 mg tablet | 2 times daily. | | | | 9 | + + + +---------+ + + | gabapentin | Take 600 mg by mouth | | 0 | | | | (NEURONTIN) 300 mg | nightly. | | | | 0 | | capsule | | | | | | + + + +---------+ + + | potassium chloride | Take 10 mEq by mouth | | 0 | | | | (KLOR-CON) 10 MEQ | 2 times daily. | | | | 9 | | ER tablet | | | | | | + + + +---------+ + + | potassium chloride | | | 0 | 11/24/19 | | | (CRUZITO) 10 MEQ | | | | 19 | 9 | | ER tablet | | | | | | + + + +---------+ + + documented as of this encounter Plan of Treatment Not on filedocumented as of this encounter Procedures + +--------+ + + + | Procedure Name | Priori | Date/Time | Associated Diagnosis | Comments | | | ty | | | | + +--------+ + + + | XR CERVICAL SPINE 4 | Routin | 02/27/2019 | Cervical | Results for this | | OR 5 VWS | e | 3:29 PM | radiculopathy | procedure are in the | | | | PDT | | results section. | + +--------+ + + + documented in this encounter Results XR Cervical Spine 4 or 5 Vws (02/27/2019 3:29 PM PDT) + + | Specimen | + + | | + + + + + | Impressions | Performed At | + + + | 1. RIGHTWARD CERVICAL CURVATURE AND STRAIGHTENING OF THE LORDOSIS | [facility] | | WITH DEGENERATIVE CHANGES AT C5-6 AND MULTILEVEL FACET HYPERTROPHY. | | | NO VISIBLE SUBLUXATION. Dictated and Signed by: Dipesh iSmon | | | Electronically signed: 02/27/2019 6:57 PM | | + + + + + + | Narrative | Performed At | + + + | SEVEN VIEWS CERVICAL SPINE 02/27/2019 3:28 PM CLINICAL HISTORY: | [facility] | | cervical radiculopathy COMPARISON: None available FINDINGS: An | | | AP view and lateral views in neutral, flexed and extended positions | | | are provided. There is rightward cervical curvature and | | | straightening of the cervical lordosis. Vertebral height and | | | alignment are otherwise maintained without evident fracture or | | | subluxation, even with flexion and extension. There is mild to | | | moderate disc space narrowing and vertebral spondylosis at C5-6 as | | | well as multilevel facet hypertrophy. Imaged skull base, soft tissue | | | structures and lung apices are unremarkable. | | + + + + + | Procedure Note | + + | Joni, Rad Results In - 02/27/2019 7:01 PM PDT SEVEN VIEWS CERVICAL SPINE 02/27/2019 | | 3:28 PMCLINICAL HISTORY: cervical radiculopathyCOMPARISON: None availableFINDINGS: An AP | | view and lateral views in neutral, flexed and extended positionsare provided. There is | | rightward cervical curvature and straightening of thecervical lordosis. Vertebral | | height and alignment are otherwise maintainedwithout evident fracture or subluxation, | | even with flexion and extension. Thereis mild to moderate disc space narrowing and | | vertebral spondylosis at C5-6 aswell as multilevel facet hypertrophy. Imaged skull | | base, soft tissue structuresand lung apices are unremarkable.IMPRESSION: 1. RIGHTWARD | | CERVICAL CURVATURE AND STRAIGHTENING OF THE LORDOSIS WITHDEGENERATIVE CHANGES AT C5-6 | | AND MULTILEVEL FACET HYPERTROPHY. NO VISIBLESUBLUXATION.Dictated and Signed by: Dipesh | | MD Alfred Electronically signed: 02/27/2019 6:57 PM | |well as multilevel facet hypertrophy. Imaged skull base, soft tissue structures | |and lung apices are unremarkable. | | | |IMPRESSION: | |1. RIGHTWARD CERVICAL CURVATURE AND STRAIGHTENING OF THE LORDOSIS WITH | |DEGENERATIVE CHANGES AT C5-6 AND MULTILEVEL FACET HYPERTROPHY. NO VISIBLE | |SUBLUXATION. | | | |Dictated and Signed by: Dipesh Simon MD | | Electronically signed: 02/27/2019 6:57 PM | + + + +---------+ + + | Performing | Address | City/State/Zipcode | Phone Number | | Organization | | | | + +---------+ + + | [facility] | | | | + +---------+ + + documented in this encounter Visit Diagnoses + + | Diagnosis | + + | Cervical radiculopathy Brachial neuritis or radiculitis nos | + + documented in this encounter"
--- OUTSIDE RECORDS SUMMARY | ~2019-05-17 | XMS | Encounter Summary ---
Demographics + + + | Address | [address] | | | [place] [address] | + + + | Home Phone | | + + + | Preferred Language | Unknown | + + + | Marital Status | | + + + | Amish Affiliation | 1041 | + + + | Race | Unknown | + + + | Ethnic Group | Unknown | + + + Author + + + | Author | [facility] | | | and [place] | + + + | Organization | [facility] | | [...] Team Providers + +------+ + | Care Public Health Sanitarian Name | Role | Phone | + +------+ + | Sharita Wise | PCP | | + +------+ + Encounter Details +--------+ + + + + | Date | Type | Department | Care Team | Description | +--------+ + + + + | 01/14/ | Abstract | [facility] [place] | [place], | | | 2017 | | PHYSIATRY [address] | [address] | | | | | [place], | [address] | | | | | [place] [address] | [place] [address] | | | | | [phone] | [phone] | | | | | | | [...]
--- OUTSIDE RECORDS SUMMARY | ~2019-05-17 | XMS | Encounter Summary ---
Demographics + + + | Address | [address] | | | [place] [address] | + + + | Home Phone | | + + + | Preferred Language | Unknown | + + + | Marital Status | | + + + | Buddhism Affiliation | 1041 | + + + [...] Team Providers + +------+ + | Care Section Cutter Name | Role | Phone | + +------+ + | Sharita Wise | PCP | | + +------+ + Encounter Details +--------+ + + + + | Date | Type | Department | Care Team | Description | +--------+ + + + + | 02/27/ | [facility] | [facility] | Mignon Serrano | Cervical | | 2019 | Encounter | MED CTR XRAY [address] | [address] | radiculopathy | | | | [place] | [facility] | | | | | [place] [address] | [address] | | | | | [phone] | [address] | | | | | | | [...] VISIBLE SUBLUXATION. Dictated and Signed by: Dipesh Simon | | | Electronically signed: 02/27/2019 6:57 [...]
--- OUTSIDE RECORDS SUMMARY | ~2019-05-17 | XMS | Encounter Summary ---
Demographics + + + | Address | [address] | | | [place] [address] | + + + | Home Phone | | + + + | Preferred Language | Unknown | + + + | Marital Status | | + + + | Confucianist Affiliation | 1041 | + + + | Race | Unknown | + + + | Ethnic Group | Unknown | + + + Author + + + | Author | [facility] | | | and [place] | + + + | Organization | [facility] | | | and [...] Team Providers + +------+ + | Care Sanitarian Aide Name | Role | Phone | + +------+ + | Sharita Wise | PCP | | + +------+ + Reason for Visit +--------+ + | Reason | Comments | +--------+ + | Other | | +--------+ + Encounter Details +--------+--------+ + + + | Date | Type | Department | Care Team | Description | +--------+--------+ + + + | 05/09/ | Refill | [facility] [place] | Mignon Serrano | Other | | 2020 | | PHYSIATRY [address] | HAMZAH Phelan [address] | | | | | [place], | [place] [facility] | | | | | [place] [address] | [address] [place], [place] | | | | | [phone] | [address] | | | | | | | | +--------+--------+ + + + Social History + + [...]
--- OUTSIDE RECORDS SUMMARY | ~2019-05-17 | XMS | Encounter Summary ---
Demographics + + + | Address | [address] | | | [place] [address] | + + + | Home Phone | | + + + | Preferred Language | Unknown | + + + | Marital Status | | + + + | Sikh Affiliation | 1041 | + + + | Race | Unknown | + + + | Ethnic Group | Unknown | + + + Author + + + | Author | [facility] | | | and [place] | + + + | Organization | [facility] | | [...] Providers + +------+ + | Care Consumer Marketing Analyst Name | Role | Phone | + [...] | Lumbar | [place], | [address] | | | | | radiculopath | Ha Trivedi MD | [place], | | | | | y | [address] | [place] | | | | | Procedures | [address] [place] | [address] | | | | | [place] INJECT | [place], [place] | Phone: | | | | | ANES/STEROID | [address] | [phone] | | | | | FORAMEN | Phone: | Fax: | | | | | LUMBAR/SACRA | [phone] | [phone] | | | | | L W IMG | Fax: | | | | | | GUIDE ,1 | [phone] | | | | | | LEVEL MI | | | | | | | DEXAMETHASON | | | | | | | E SODIUM | | | | | | | PHOS, 1 MG | | | | | | | Bilateral | | | | | | | L4-L5 TFESI | | | +--------+--------+ + + + + Encounter Details +--------+ + + + + | Date | Type | Department | Care Team | Description | +--------+ + + + + | 05/10/ | Hospital | [facility] | Mignon Serrano | Lumbar radiculopathy | | 2020 | Encounter | MED CTR XRAY [address] | HAMZAH Phelan [address] | | | | | [place] | [facility] | | | | | [place] [address] | [address] [place], [place] | | | | | [phone] | [address] | | | | | | | | | | | | [employer] | | +--------+ + + + + [...] +---------+ + + | Blood Pressure | 176/113 | 05/10/2019 11:42 AM | | | | | PST | | + +---------+ + + | Pulse | 80 | 05/10/2019 11:42 AM | | | | | PST | | + +---------+ + + | [...] | escitalopram | | | 0 | /18/20 | | | (LEXAPRO) 10 mg | [...] + +---------+ + + | gabapentin | 3 po HS for 1-3 | 120 | 1 | 05/09/19 | | | (NEURONTIN) 300 mg | days; then 4 po HS | capsule | | 20 | | | capsule | or 1 po QD and 3 po | | | | | | | HS to total 1200 mg. | | | | | + + + +---------+ + + | | | | 0 | 04/15/20 | | | hydroCHLOROthiazide | | | | 19 | | | (HYDRODIURIL) 12.5 | | | | | | | MG tablet | | | | | | [...] | metFORMIN | | | 0 | 10/16/20 | | | (GLUCOPHAGE) 500 mg | | | | 19 | | | tablet | | | | | | + + + +---------+ + + | traMADol (ULTRAM) | | | 0 | 10//20 | | | 50 mg tablet | [...] | FL EPIDURAL STEROID | Routin | 05/10/2019 | Lumbar | Results for this | | INJECTION LUMBAR | e | 11:27 AM | radiculopathy | procedure are in the | | TRANSFORAMINAL | | PST | | results section. | + +--------+ + + + documented in this encounter Results FL AGUSTINA Lumbar Sacral Transforaminal (05/10/2019 11:27 AM PST) + + | Specimen | + + | | + + + + -+ | Narrative | Performed At | + + -+ | 05/10/2019 | [facility] | | Bilateral Transforaminal Epidural Steroid Injections Diagnosis: Lumbar | | | radiculopathy ICD-10 Code M54.16 Katalina Guido Andria presents to the | | | fluoroscopy [...] Diagnosis | + + | Lumbar radiculopathy Thoracic or lumbosacral neuritis or radiculitis, unspecified | + + documented in this encounter Administered Medications + +--------+ +-------+------+------+ | Medication Order | MAR | Action | Dose | Rate | Site | | | Action | Date | | | | + +--------+ +-------+------+------+ | dexamethasone (PF) 10 mg/mL | Given | 05/10/19 | 15 mg | | | | injection 15 mg 15 mg, Other, | | 20 11:39 | | | | | ONCE, 05/10/19 at 1130, For 1 | | AM PST | | | | | dose, EPIDURAL When ordered IV | | | | | | | push: Dilute to 10-20 mL with NS | | | | | | | and give slowly over 1-2 | | | | | | | minutes., | | | | | | + +--------+ +-------+------+------+ +---+---+ | | | +---+---+ + +-------+ +-------+---+---+ | iohexol (OMNIPAQUE 300) 300 | Given | 05/10/19 | 3 mLs | | | | mg/mL injection 3 mL 3 mL, | | 20 11:35 | | | | | EPIDURAL, ONCE, 05/10/19 at | | AM PST | | | | | 1130, For 1 dose | | | | | | + +-------+ +-------+---+---+ +---+---+ | | | +---+---+ + +-------+ +-------+---+---+ | lidocaine (PF) 1% injection 2 | Given | 05/10/19 | 2 mLs | | | | mL 2 mL, Other, ONCE, 05/10/19 | | 20 11:39 | | | | | at 1130, For 1 dose | | AM PST | | | | + +-------+ +-------+---+---+ +---+---+ | | | +---+---+ + +-------+ +-------+---+ + | lidocaine buffered 0.9% | Given | 05/10/19 | 6 mLs | | Other | | injection 6 mL 6 mL, | | 20 11:33 | | | (Comment | | Intradermal, ONCE, 05/10/19 at | | AM PST | | | ) | | 1130, For 1 dose | | | | | | + +-------+ +-------+---+ + +---+---+ | | | +---+---+ documented in this encounter"
--- OUTSIDE RECORDS SUMMARY | ~2019-05-17 | XMS | Encounter Summary ---
Demographics + + + | Address | [address] | | | [place] [address] | + + + | Home Phone | | + + + | Preferred Language | Unknown | + + + | Marital Status | | + + + | Jainism Affiliation | 1041 | + + + | Race | Unknown | + + + | Ethnic Group | Unknown | + + + Author + + + | Author | [facility] | | | and [place] | + + + | Organization | [facility] | | | and [...] Team Providers + +------+ + | Care Head Loft Worker Name | Role | Phone | + +------+ + | Sharita Wise | PCP | | + +------+ + Reason for Referral Evaluate & Treat (Routine) +--------+ + + + + + | Status | Reason | Specialty | Diagnoses / | Referred By | Referred To | | | | | Procedures | Contact | Contact | +--------+ + + + + + | Denied | Specialty | Neurosurgery | Diagnoses | | [place], | | | Services | | Lumbar | [place], | Adan Hester DO | | | Required | | radiculopath | [place], | [address] | | | | | y [place] | PA-C [address] | [place] | | | | | lumbar disc | [place], | [place] | | | | | without | [address] | [address] Phone: | | | | | myelopathy | [place] | [phone] | | | | | | [address] | Fax: | | | | | | Phone: | [phone] | | | | | | [phone] | | | | | | | Fax: | | | | | | | [phone] | | +--------+ + + + + + Encounter Details +--------+ + + + + | Date | Type | Department | Care Team | Description | +--------+ + + + + | 01/26/ | Orders Only | [facility] | Ayse, | Lumbar radiculopathy | | 2016 | | PHYSIATRY [address] | NIVIA Dumont-C [address] | - right L4/L5; | | | | [place], | [address], [address] | Bul[place] of lumbar disc | | | | [place] [address] | [place] [address] | without myelopathy | | | | [phone] | [phone] | | | | | | | [...] as of this encounter Plan of Treatment + + +--------+ + + | Name | Type | Priori | Associated Diagnoses | Order Schedule | | | | ty | | | + + +--------+ + + | AMB REFERRAL TO [facility] | Outpatient | Routin | Lumbar | Ordered: 01/26/2017 | | [facility] | Referral | e | radiculopathy - | | | | | | right L4/L5 [place] | | | | | | of lumbar disc | | | | | | without myelopathy | | + + +--------+ + + documented as of this encounter Results [place] AGUSTINA Lumbar Transforaminal [...] + + | Performing | Address | City/State/[facility] [place] | Phone Number | | Organization | [...] myelopathy | + + documented in this encounter"
--- OUTSIDE RECORDS SUMMARY | ~2019-05-17 | XMS | Encounter Summary ---
Demographics + + + | Address | [address] | | | [place] [address] | + + + | Home Phone | | + + + | Preferred Language | Unknown | + + + | Marital Status | | + + + | Hoahaoism Affiliation | 1041 | + + + | Race | Unknown | + + + | Ethnic Group | Unknown | + + + Author + + + | Author | [facility] | | | and [place] | + + + | Organization | [facility] | | | [...] Team Providers + +------+ + | Care Embossing Machine Tender Name | Role | Phone | + +------+ + | Sharita Wise | PCP | | + +------+ + Reason for Visit +---------+ + | Reason | Comments | +---------+ + | Results | MRI results | +---------+ + Encounter Details +--------+ + + + + | Date | Type | Department | Care Team | Description | +--------+ + + + + | 01/26/ | Telephone | [facility] [place] | Ayse, | Results (MRI | | 2017 | | [address]SIAT[address] | [address]AMZAH [address] | results) | | | | [place], | [place], [address] | | | | | [place] [address] | [place] [address] | | | | | [phone] | [phone] | | | | | | | [...]
--- OUTSIDE RECORDS SUMMARY | ~2019-05-17 | XMS | Encounter Summary ---
Demographics + + + | Address | [address] | | | [place] [address] | + + + | Home Phone | | + + + | Preferred Language | Unknown | + + + | Marital Status | | + + + | Anglican Affiliation | 1041 | + + + | Race | Unknown | + + + | Ethnic Group | Unknown | + + + Author + + + | Author | [facility] | | | and [place] | + + + | Organization | [facility] | | | [...] Team Providers + +------+ + | Care Landscape Painter Name | Role | Phone | + +------+ + | Sharita Wise | PCP | | + +------+ + Reason for Visit + + + | Reason | Comments | + + + | Results, Imaging | | + + + Encounter Details +--------+ + + + + | Date | Type | Department | Care Team | Description | +--------+ + + + + | 02/28/ | Telephone | [facility] [place] | Mignon Serrano | Results, Imaging | | 2019 | | [address]ATRY [address] | HAMZAH Phelan [address] | | | | | [place], | [employer] [facility] | | | | | [place] [address] | [address] [place], [place] | | | | | [phone] | [address] | | | | | | | [...]
--- OUTSIDE RECORDS SUMMARY | ~2019-05-17 | XMS | Encounter Summary ---
Demographics + + + | Address | [address] | | | [place] [address] | + + + | Home Phone | | + + + | Preferred Language | Unknown | + + + | Marital Status | | + + + | Restorationism Affiliation | 1041 | + + + | Race | Unknown | + + + | Ethnic Group | Unknown | + + + Author + + + | Author | [facility] | | | and [place] | + + + | Organization | [facility] | | | [...] Team Providers + +------+ + | Care Construction Foreman Name | Role | Phone | + +------+ + | Sharita Wise | PCP | | + +------+ + Reason for Visit + + + | Reason | Comments | + + + | Follow-up, Office | low back pain | | Visit | | + + + Follow Up [...] | | | | n | | [place], | [address] | | | | | | [address] | [address] | | | | | | [place], | [address] Phone: | | | | | | [place] [address] | [phone] | | | | | | Phone: | Fax: | | | | | | [phone] | [phone] | | | | | | Fax: | | | | | | | [phone] | | + +--------+ + + + + Encounter Details +--------+---------+ + + + | Date | Type | Department | Care Team | Description | +--------+---------+ + + + | 02/27/ | Office | [facility] [place] | Mignon Serrano | Lumbar radiculopathy | | 2019 | Visit | PHYSIATRY [address] | HAMZAH Phelan [address] | (Primary Dx); [place] | | | | [place], | [address] | of lumbar disc | | | | [place] [address] | [address] [place], [place] | without myelopathy; | | | | [phone] | [address] | Cervical | | | | | | radiculopathy | +--------+---------+ + + + Social History [...] | | | + +---+---+---+ + + | Tobacco Cessation: Counseling Given: Yes | + + + + +---------+ + | Alcohol [...] + + + | Blood Pressure | 150/96 | 02/27/2019 2:10 PM | | | | | PDT | | + + + + + | Pulse | 90 | 02/27/2019 2:10 PM | | | | | PDT | | + + + + + [...] + + + + | Weight | 107.9 kg (237 lb 14 | 02/27/2019 2:10 PM | | | | oz) | PDT | | + + + + + | Height | 165.1 cm (5' 5") | 02/27/2019 2:10 PM | | | | | PDT | | + + + + + | Body Mass Index | 39.58 | 02/27/2019 2:10 PM | | | | | PDT | | + + + + + documented in this encounter Patient Instructions Patient Instructions Mignon Serrano PA-C - 02/27/2019 2:20 PM PDT1. I have ordered a repeat injection for your low back. Once authorized they will call you to schedule. Follow-up at the hospital thirty minutes before [...] of the procedure you must provide a lease purchase truck driver to take you home. For all procedur es it is recommended that someone else drive you home. documented in this encounter Progress Notes Mignon Serrano PA-C - 02/27/2019 2:20 PM PDTFormatting of this note might be diffe rent from the original. Zhane Serrano PA-C [address] [place], [place] [id number] FAX: PHYSICAL MEDICINE AND REHABILITATION H&P CHIEF COMPLAINT: Chief Complaint Patient presents with Follow-up, Office Visit low back pain HISTORY OF PRESENT ILLNESS: The patient is a 48 y.o. female being seen today for complaint s of right side low back pain with radiation into the right leg that began August 2016 from n o known injury or insult. Patient was last seen for this injury by Meaghan GOODSON on 01/19/2017. At that time it was recommended she have a TFESI right L4-5 which was done on 02/04/2017. She reports that this resolved her pain was 2 years. Her pain is slowly recurring. Patient underwent physical therapy in 2017 prior [...] she has noticed that symptoms have been stable. She describes the pain as a aching, numbing and throbbing feeling. She rates the pain as mild to moderate. He r symptoms worsen with prolonged standing, walking, sitting. Her symptoms improve with gonzalez ging position often, lying down, leaning forward. The patient also describes leg symptoms that occur on right side. The leg symptoms account for greater than or equal to 75% of her symptoms. The leg symptoms are in an L4 dermatome at this time include some pain and numbness. The patient does describe numbness of the right lower extremity. She does not report weak ness of the right leg with extreme pain. She does not have bowel and bladder dysfunction. She does not have saddle anesthesia. Treatments for these complaints have included physical therapy at [facility], use of gabapentin 900mg at night which she states helps her [...] Surgical History: Procedure Laterality Date APPENDECTOMY [facility] COLONOSCOPY 01/19/2013 One polyp CURRENT MEDICATIONS: Current Outpatient Medications Medication Sig Dispense Refill buPROPion (WELLBUTRIN SR) 150 mg 12 hr tablet Take 150 mg by mouth 2 times daily. CALCIUM CITRATE PO Take by mouth. CHANTIX CONTINUING MONTH NEVA 1 MG tablet CHANTIX STARTING MONTH NEVA 0.5 MG X 11 & 1 MG X 42 tablet escitalopram (LEXAPRO) 10 mg tablet escitalopram (LEXAPRO) 5 MG tablet famotidine (PEPCID) 20 mg tablet Take 20 mg by mouth as needed. famotidine (PEPCID) 20 mg tablet Take 20 mg by mouth. furosemide (LASIX) 20 mg tablet Take 20 mg by mouth 2 times daily. gabapentin (NEURONTIN) 300 mg capsule Take 900 mg by mouth nightly. LORazepam (ATIVAN) 1 mg tablet losartan-hydrochlorothiazide (HYZAAR) 50-12.5 MG per tablet medroxyPROGESTERone (DEPO-PROVERA) 150 mg/mL injection (vial) Inject 150 mg into the mu scle Every 3 months. metFORMIN (GLUCOPHAGE) 500 mg tablet potassium chloride (KLOR-CON) 10 MEQ ER tablet Take 10 mEq by mouth 2 times daily. potassium chloride (KLOR-CON) 10 MEQ ER tablet traMADol (ULTRAM) 50 mg tablet 0 No current facility-administered medications for this visit. ALLERGIES: No Known Allergies SOCIAL HISTORY: The patient reports that she quit smoking about 5 months ago. Her smoking use included cig arettes. She started smoking about 22 years ago. She has a 20.00 pack-year smoking history. She has quit using smokeless tobacco. She reports that she drinks alcohol. She reports that she does not use [...] pain/arthritis, no Rheumatoid Arthritis PHYSICAL EXAMINATION: Vitals: 02/27/19 1410 BP: (!) 150/96 Pulse: 90 PainSc: 3 PainLoc: Back Body mass index is 39.58 kg/m. GENERAL: The patient is well developed [...] extremity edema. ABDOMEN: The patient is overweight. NEUROLOGIC: The patient is awake, alert, and oriented to time, place, person. She follows simple and complex commands. Her speech is fluent. She comprehends speech well. She has no apparent deficits with short or longwall headgate operator memory. She has appropriate fund of knowledge Cranial nerves 2-12 appear grossly intact. REFLEX: RIGHT LEFT PATELLAR 1 2+ ACHILLES 2+ 2+ MUSCULOSKELETAL There is no tenderness in the [...] the majority of the pain to the right L5/S1 region. Lumbar facet loading was negative. Strength testing showed 5/5 strength throughout the lower extremities. The patient was able to heel and toe walk w ithout difficulty. RADIOGRAPHIC REVIEW: The patient's imaging was reviewed in detail with the patient today during the visit. Lumb ar xray in AP and Lateral view from shows good vertebral alignment, good disc space between vertebra. ASSESSMENT: 1. Lumbar radiculopathy 2. Bulge of lumbar disc without myelopathy 3. Cervical radiculopathy PLAN: 1. Patient is a 48-year-old who was last seen for TFESI right L4-5 on 02/04/2017 who return s today to report that she had exceptional relief for almost 2 years. Her pain is slowly re curring and she would like to proceed with repeat epidural steroid injection. 2. Patient has been able to stay off of pain medications and adjuvant medications except f or gabapentin. She will continue the gabapentin. 3. Patient has successfully quit smoking and is working on weight loss. We did discuss th at if at some point she did need surgery weight loss and smoking cessation would be a prereq uisite. 4. Patient will follow up as needed ELECTRONICALLY SIGNED BY: Julio Serrano PA-C, 02/28/2019 CC: Sharita WiseElectronkerwin signed by Mignon Serrano PA-C at 02/28/2019 8:29 AM PDTdocumented in this encounter Plan of Treatment Not on filedocumented as of this encounter Results XR Cervical Spine 4 [...] | without myelopathy | + + | Cervical radiculopathy Brachial neuritis or radiculitis nos | + + documented in this encounter
--- OUTSIDE RECORDS SUMMARY | ~2019-05-17 | XMS | Clinical Summary ---
Demographics + + + | Address | [address] | | | [place] [address] | + + + | Home Phone | | + + + | Preferred Language | Unknown | + + + | Marital Status | | + + + | Oriental Orthodox Affiliation | 1041 | + + + | Race | Unknown | + + + | Ethnic Group | Unknown | + + + Author + + + | Author | [facility] | | | and [place] | + + + | Organization | [facility] | | | [...] Team Providers + +------+ + | Care Clinical Science Consultant Name | Role | Phone | + +------+ + | Sharita Wise | PCP | | + +------+ + Allergies No Known Allergies Medications + + + +---------+------+------+-------+ | Medication | Sig | Dispensed | Refills | Star | End | Statu | | | | | | t | Date | s | | | | | | Date | | | + + + +---------+------+------+-------+ | | Inject 150 mg into | | 0 | | | Activ | | medroxyPROGESTERone | the muscle Every 3 | | | | | e | | (DEPO-PROVERA) 150 | months. | | | | | | | mg/mL injection | | | | | | | | (vial) | | | | | | | + + + +---------+------+------+-------+ | escitalopram | | | 0 | 07/1 | | Activ | | (LEXAPRO) 10 mg | | | | 8/20 | | e | | tablet | | | | 19 | | | + + + +---------+------+------+-------+ | LORazepam (ATIVAN) | | | 0 | 05/2 | | Activ | | 1 mg tablet | | | | 9/20 | | e | | | | | | 19 | | | + + + +---------+------+------+-------+ | | | | 0 | 10/1 | | Activ | | losartan-hydrochloro | | | | 4/20 | | e | | thiazide (HYZAAR) | | | | 19 | | | | 50-12.5 MG per | | | | | | | | tablet | | | | | | | + + + +---------+------+------+-------+ | famotidine | Take 20 mg by mouth. | | 0 | | | Activ | | (PEPCID) 20 mg | | | | | | e | | tablet | | | | | | | + + + +---------+------+------+-------+ | metFORMIN | | | 0 | 10/1 | | Activ | | (GLUCOPHAGE) 500 mg | | | | 6/20 | | e | | tablet | | | | 19 | | | + + + +---------+------+------+-------+ | traMADol (ULTRAM) | | | 0 | 10/1 | | Activ | | 50 mg tablet | | | | 4/20 | | e | | | | | | 19 | | | + + + +---------+------+------+-------+ | | | | 0 | 12/1 | | Activ | | hydroCHLOROthiazide | | | | 4/20 | | e | | (HYDRODIURIL) 12.5 | | | | 19 | | | | MG tablet | | | | | | | + + + +---------+------+------+-------+ | gabapentin | 3 po HS for 1-3 | 120 | 1 | 01/0 | | Activ | | (NEURONTIN) 300 mg | days; then 4 po HS | capsule | | 7/20 | | e | | capsule | or 1 po QD and 3 po | | | 20 | | | | | HS to total 1200 mg. | | | | | | + + + +---------+------+------+-------+ | buPROPion | Take 150 mg by mouth | | 0 | | 12/2 | Disco | | (WELLBUTRIN SR) 150 | 2 times daily. | | | | 3/20 | ntinu | | mg 12 hr tablet | | | | | 19 | ed | | | | | | | | ([facility] | | | | | | | | ent | | | | | | | | Not | | | | | | | | Takin | | | | | | | | g) | + + + +---------+------+------+-------+ | CALCIUM CITRATE PO | Take by mouth. | | 0 | | 12/2 | Disco | | | | | | | 3/20 | ntinu | | | | | | | 19 | ed | | | | | | | | ([facility] | | | | | | | | ent | | | | | | | | Not | | | | | | | | Takin | | | | | | | | g) | + + + +---------+------+------+-------+ | furosemide (LASIX) | Take 20 mg by mouth | | 0 | | 12/2 | Disco | | 20 mg tablet | 2 times daily. | | | | 3/20 | ntinu | | | | | | | 19 | ed | | | | | | | | ([facility] | | | | | | | | ent | | | | | | | | Not | | | | | | | | Takin | | | | | | | | g) | + + + +---------+------+------+-------+ | famotidine | Take 20 mg by mouth | | 0 | | 12/2 | Disco | | (PEPCID) 20 mg | as needed. | | | | 3/20 | ntinu | | tablet | | | | | 19 | ed | | | | | | | | ([facility] | | | | | | | | ent | | | | | | | | Not | | | | | | | | Takin | | | | | | | | g) | + + + +---------+------+------+-------+ | gabapentin | Take 600 mg by mouth | | 0 | | 01/0 | Disco | | (NEURONTIN) 300 mg | nightly. | | | | 11/19 | ntinu | | capsule | | | | | 20 | ed | | | | | | | | (Reor | | | | | | | | miguel ángel) | + + + +---------+------+------+-------+ | escitalopram | | | 0 | 04/2 | 04/03 | Disco | | (LEXAPRO) 5 MG | | | | 07/20 | 07/20 | ntinu | | tablet | | | | 18 | 19 | ed | | | | | | | | ([facility] | | | | | | | | ent | | | | | | | | Not | | | | | | | | Takin | | | | | | | | g) | + + + +---------+------+------+-------+ | potassium chloride | Take 10 mEq by mouth | | 0 | | 12/2 | Disco | | (KLOR-CON) 10 MEQ | 2 times daily. | | | | 20 | ntinu | | ER tablet | | | | | 19 | ed | | | | | | | | ([facility] | | | | | | | | ent | | | | | | | | Not | | | | | | | | Takin | | | | | | | | g) | + + + +---------+------+------+-------+ | potassium chloride | | | 0 | 07/2 | 12/2 | Disco | | (HUGH-CON) 10 MEQ | | | | 4/20 | 3/20 | ntinu | | ER tablet | | | | 19 | 19 | ed | | | | | | | | ([facility] | | | | | | | | ent | | | | | | | | Not | | | | | | | | Takin | | | | | | | | g) | + + + +---------+------+------+-------+ | CHANTIX STARTING | | | 0 | 02/2 | 12/2 | Disco | | MONTH NEVA 0.5 MG X | | | | 5/20 | 3/20 | ntinu | | 11 & 1 MG X 42 | | | | 19 | 19 | ed | | tablet | | | | | | ([facility] | | | | | | | | ent | | | | | | | | Not | | | | | | | | Takin | | | | | | | | g) | + + + +---------+------+------+-------+ | CHANTIX CONTINUING | | | 0 | 06/0 | 12/2 | Disco | | MONTH NEVA 1 MG | | | | 7/20 | 3/20 | ntinu | | tablet | | | | 19 | 19 | ed | | | | | | | | ([facility] | | | | | | | | ent | | | | | | | | Not | | | | | | | | Takin | | | | | | | | g) | + + + +---------+------+------+-------+ | losartan (COZAAR) | | | 0 | 12/1 | 12/2 | Disco | | 50 mg tablet | | | | 4/20 | 3/20 | ntinu | | | | | | 19 | 19 | ed | | | | | | | | (Dupl | | | | | | | | icate | | | | | | | | | | | | | | | | Entry | | | | | | | | ) | + + + +---------+------+------+-------+ Active Problems + + + | Problem | Noted Date | + + + | Acute non-recurrent maxillary sinusitis | 09/21/2017 | + + + + + | Overview: Last Assessment & Plan: -- Increased pain bending | | forward as well as with palpation on the right maxillary. Will | | prescribe Augmentin x 5 days. Enoucraged pt to drink plenty of | | fluid and to take probiotics such as yogurt or pillo x 10 days. | | Instructed pt to take ibuprofen 600 mg as needed for pain with | | food. -- She has cavity on right upper molar has cavity. | | Encouraged pt to follow up with her dentist when she goes back | | home.-- Instructed patient to return to the clinic if symptoms | | persist or get worse. | + + + + + | Lumbar radiculopathy - right L4/L5 | 01/26/2017 | + + + | Bulge of lumbar disc without myelopathy | 01/26/2017 | + + + | Chronic right-sided low back pain with right-sided sciatica | 01/19/2017 | + + + Encounters +--------+ + + + + | Date | Type | Specialty | Care Team | Description | +--------+ + + + + | 05/16/ | Telephone | Physical Medicine | Mignon Serrano | Injections | | 2020 | | and Rehabilitation | HAMZAH Phelan | | +--------+ + + + + | 05/10/ | Hospital | Radiology | Mignon Serrano | Lumbar radiculopathy | | 2019 | Encounter | | HAMZAH Phelan | | | | | | Track SuperintendentEmigdio | | +--------+ + + + + | 05/09/ | Refill | Physical Medicine | Mignon Serrano | Other | | 2019 | | and Rehabilitation | HAMZAH Phelan | | +--------+ + + + + | 04/24/ | Office | Physical Medicine | Mignon Serrano | Lumbar radiculopathy | | 2018 | Visit | and Rehabilitation | HAMZAH Phelan | (Primary Dx); Bulge | | | | | | of lumbar disc | | | | | | without myelopathy; | | | | | | Obesity (BMI | | | | | | 30-39.9) | +--------+ + + + + | 02/28/ | Telephone | Physical Medicine | Mignon Serrano | Results, Imaging | | 2018 | | and Rehabilitation | HAMZAH Phelan | | +--------+ + + + + | 02/27/ | Hospital | Radiology | Mignon Serrano | Cervical | | 2018 | Encounter | | HAMZAH Phelan | radiculopathy | +--------+ + + + + | 02/27/ | Office | Physical Medicine | Mignon Serrano | Lumbar radiculopathy | | 2018 | Visit | and Rehabilitation | HAMAZH Phelan | (Primary Dx); Bulge | | | | | | of lumbar disc | | | | | | without myelopathy; | | | | | | Cervical | | | | | | radiculopathy | +--------+ + + + + from Last 3 Months Family History + + +------+ + | Medical History | Relation | Name | Comments | + + +------+ + | Heart attack | Father | | | + + +------+ + | Heart disease | Maternal | | | | | Grandfath | | | | | er | | | + + +------+ + | Breast cancer | Maternal | | | | | Grandmoth | | | | | er | | | + + +------+ + | Arthritis | Mother | | | + + +------+ + | Diabetes | Mother | | | + + +------+ + | Kidney disease | Mother | | | + + +------+ + | Other (see comment) | Mother | | Brain Tumor | + + +------+ + | Stroke | Mother | | | + + +------+ + | Diabetes | Paternal | | | | | Grandfath | | | | | er | | | + + +------+ + | Diabetes | Paternal | | | | | Grandmoth | | | | | er | | | + + +------+ + | Thyroid disease | Sister | | | + + +------+ + + +------+ + + | Relation | Name | Status | Comments | + +------+ + + | Father | | | Heart Attack | | | | (Age | | | | | 56) | | + +------+ + + | Maternal Grandfather | | | | + +------+ + + | Maternal Grandmother | | | | + +------+ + + | Mother | | | | + +------+ + + | Paternal Grandfather | | | | + +------+ + + | Paternal Grandmother | | | | + +------+ + + | Sister | | | | + +------+ + + Social History + + + [...] recent travel history available. | + + Last Filed Vital Signs + + + + + | Vital Sign | Reading | Time Taken | Comments | + + + + + | Blood Pressure | 176/113 | 05/10/2019 11:42 AM | | | | | PST | | + + + + + | Pulse | 80 | [...] | | + + + + + Plan of Treatment + + + + + | Health Maintenance | Due Date | Last Done | Comments | + + + + + | Cervical Cancer | | | | | Screening (Pap) | 0 | | | + + + + + | Breast Cancer | | | | | Screening | 5 | | | + + + + + | Vaccine: Influenza | | | | | (#1) | 9 | | | + + + + + | Vaccine: | | 03/20/2009 | | | Dtap/Tdap/Td (2 - | 9 | | | | Td) | | | | + + + + + Procedures + +--------+ + + + | [...] section. | + +--------+ + + + | XR CERVICAL SPINE 4 | Routin | 02/27/2019 | Cervical | Results for this | | OR 5 VWS | e | 3:29 PM | radiculopathy | procedure are in the | | | | PDT | | results section. | + +--------+ + + + from Last 3 Months Results [place] AGUSTINA Lumbar Sacral Transforaminal (05/10/2019 11:27 AM PST) + + | Specimen | + + | | + + + + -+ | Narrative | Performed At | + + -+ | 05/10/2019 | [facility] | | Bilateral Transforaminal Epidural Steroid Injections Diagnosis: Lumbar | | | radiculopathy ICD-10 Code M54.16 Katalina M Andria presents to the | | | [...] | | | + +---------+ + + XR Cervical Spine 4 or 5 Vws [...] | | | + +---------+ + + from Last 3 Months Insurance + +--------+ +--------+ +---------+------+ | Payer | Benefi | Subscriber | Effect | Phone | Address | Type | | | t Plan | ID | jack | | | | | | / | | Dates | | | | | | Group | | | | | | + +--------+ +--------+ +---------+------+ | [employer] | PACIFI | [id number] | 05/03/19 | [phone] | | PPO | | | [employer] | | 19-Pre | 2 | | | | | E | | sent | | | | | | FIRST | | | | | | | | CHOICE | | | | | | + +--------+ +--------+ +---------+------+ + +--------+ +--------+ + + | Guarantor Name | Accoun | Relation to | Date | Phone | Billing Address | | | t Type | Patient | of | | | | | | | | | | + +--------+ +--------+ + + | Katalina Ayers | Person | Self [birth year] | [address] | | | al/Fam | | 1971 | [phone] | [place] | | | [place] | | | 3 (Home) | [id number] | | | | | | [phone] | | | | | | | 4 (Work) | | + +--------+ +--------+ + + Advance Directives + + + + + | Type | Date Recorded | Patient | Explanation | | | | Director Hair | | + + + + + | Power of | | | | | Freight Car Repairer | | | | + + + + + | Advance | 05/10/2019 11:05 | | | | Directive | AM | | | + + + + +
--- OUTSIDE RECORDS SUMMARY | ~2019-05-17 | XMS | Clinical Summary ---
Demographics + + + | Address | [address] | | | [place] [address] | + + + | Home Phone | | + + + | Preferred Language | Unknown | + + + | Marital Status | | + + + | Amish Affiliation | 1041 | + + + | Race | Unknown | + + + | Ethnic Group | Unknown | + + + Author + + + | Author | [facility] | | | and [place] | + + + | Organization | [facility] | | [...] Team Providers + +------+ + | Care Supervisor Testing Name | Role | Phone | + [...] Phelan | | | | | | Rounder HandEmigdio | | +--------+ + + + + [...] +--------+ +---------+------+ | [employer] | PACIFI | [id number] | 05/03/19 | [phone] | | PPO | | | [employer] [...] | | al/Fam | | 1971 | [phone] | [place] | | | [place] | | | 3 (Home) | [phone] | | | | | | [phone] | | | | | | | 4 (Work) | | + +--------+ +--------+ + + Advance Directives + + + + + | Type | Date Recorded | Patient | Explanation | | | | Admissions Recruiter | | + + + + + | Power of | | | | | Collar Fuser | | | | + + + + + | Advance | 05/10/2019 11:05 | | | | Directive | AM | | | + + + + +
--- OUTSIDE RECORDS SUMMARY | ~2019-05-17 | XMS | Encounter Summary ---
Demographics + + + | Address | [address] | | | [place] [address] | + + + | Home Phone | | + + + | Preferred Language | Unknown | + + + | Marital Status | | + + + | Rastafarian Affiliation | 1041 | + + + | Race | Unknown | + + + | Ethnic Group | Unknown | + + + Author + + + | Author | [facility] | | | and [place] | + + + | Organization | [facility] | | | and [...] Team Providers + +------+ + | Care Farmworker [employer] Name | Role | Phone | + +------+ + | Sharita Wise | PCP | | + +------+ + Reason for Visit + + + | Reason | Comments | + + + | Follow-up | | + + + Encounter Details +--------+ + + + + | Date | Type | Department | Care Team | Description | +--------+ + + + + | 09/26/ | Telephone | [facility] | [place], | Follow-up | | 2017 | | PHYSIATRY [address] | HAMZAH Dumont [address] | | | | | [address], | [address] | | | | | [place] [address] | [place] [address] | | | | | [phone] | [phone] | | | | | | | [...]
--- OUTSIDE RECORDS SUMMARY | ~2019-05-17 | XMS | Encounter Summary ---
Demographics + + + | Address | [address] | | | [place] [address] | + + + | Home Phone | | + + + | Preferred Language | Unknown | + + + | Marital Status | | + + + | Holiness Affiliation | 1041 | + + + | Race | Unknown | + + + | Ethnic Group | Unknown | + + + Author + + + | Author | [facility] | | | and [place] | + + + | Organization | [facility] | | | and [...] Team Providers + +------+ + | Care Hand Trimmer Name | Role | Phone | + +------+ + | Sharita Wise | PCP | | + +------+ + Reason for Referral Diagnostic/Screening (Routine) +--------+--------+ + + + + | Status | Reason | Specialty | Diagnoses / | Referred By | Referred To | | | | | Procedures | Contact | Contact | +--------+--------+ + + + + | Closed | | | Diagnoses | | [address] | | | | | Chronic | Ayse, | [facility] | | | | | right-sided | Julia, | HOSPITAL | | | | | low back | NIVIA[address]Sheryl [address] | [address] | | | | | pain with | [address], | AVE | | | | | right-sided | [address] | [place], [place] | | | | | sciatica | [place] | [address] | | | | | Procedures | [address] | Phone: | | | | | MRI Lumbar | Phone: | [phone] | | | | | Spine wo | [phone] | Fax: | | | | | Contrast | Fax: | [phone] | | | | | Faxed 01/21 | [phone] | | +--------+--------+ + + + + Reason for Visit + + + | Reason | Comments | + + + | Back Pain | low back pain radiating down right leg | + + + Evaluate & Treat (Routine) +--------+--------+ + + + + | Status | Reason | Specialty | Diagnoses / | Referred By | Referred To | | | | | Procedures | Contact | Contact | +--------+--------+ + + + + | Closed | | Physical | Diagnoses | Billie, | Palmer, | | | | Medicine and | | NIVIA Sheriff | Ha Trivedi MD | | | | Rehabilitatio | Sacroiliitis | [address] | | | | n | , not | [facility], | [facility] | | | | | elsewhere | [address] | [place] | | | | | classified | [place], | [address] Phone: | | | | | (LQQ) | [place] [address] | [phone] | | | | | | Phone: | Fax: | | | | | | [phone] | [phone] | | | | | | Fax: | | | | | | | [phone] | | +--------+--------+ + + + + Encounter Details +--------+---------+ + + + | Date | Type | Department | Care Team | Description | +--------+---------+ + + + | 01/19/ | Office | [facility] [place] | Ayse, | Chronic right-sided | | 2017 | Visit | PHYSIATRY [address] | HAMZAH Dumont [address] | low back pain with | | | | [place], | [address], [address] | right-sided sciatica | | | | [place] [address] | [place] [address] | | | | | [phone] | [phone] | | | | | | | | +--------+---------+ + + + Social History [...] + + + | Blood Pressure | 145/95 | 01/19/2017 10:12 AM | | | | | PDT | | + + + + + | Pulse | 70 | 01/19/2017 10:12 AM | | | | | PDT | [...] | Weight | 107.9 kg (237 lb | 01/19/2017 10:12 AM | | | | 12.8 oz) | PDT | | + + + + + | Height | 165.1 cm (5' 5") | 01/19/2017 10:12 AM | | | | | PDT | | + + + + + | Body Mass Index | 39.57 | 01/19/2017 10:12 AM | | | | | PDT | | + + + + + documented in this encounter Patient Instructions Patient Instructions Julia Tavera PA-C - 01/19/2017 10:00 AM PDT1) Lumbar xray in f lexion and extension 2) Lumbar MRI Possible disc bulge/pinched nerve Foraminal Stenosis/Radicular Pain: Foraminal stenosis is a narrowing of the spinal foramen, the hole through which passes a s lamine nerve as it exits the spine. It is usually a form of degenerative spine disease which occurs slowly over time with wear and tear of the spinal column. Arthritic changes of the s pine, a herniated discs, soft tissue swelling and bony growth can all impinge on the formal foramen and compress the nerve. Because the narrowing (stenosis) of the foramen pinches a nerve, the primary symptoms relat ed to this disorder is directly related to that nerve which is affected. This obviously vari es depending on which foramina are involved. The pinched nerve can lead to basically two cl asses of symptoms. Symptoms include pain in the distribution of that nerve as well as numbne ss, tingling and or weakness can occur. Steroids are a very strong anti-inflammatory, this helps reduce pain by reducing swelling. Complications of steroids are bleeding, infection, and an increase of blood sugars if you are diabetic. ferry terminal agent risk can lead to osteoporosis which is why we limited the number of injections to 3 times per year. With an epidural injection, the nerve root that comes out of the spine and travels down your leg is targeted. The procedure is about 20 minutes long . You will lie on your back while x-rays are taken. Once the region is marked, it is numbe d and then injected with steroids. Follow-up at the hospital thirty minutes before [...] of the procedure you must provide a regional otr company driver to take you home. For all procedur es it is recommended that someone else drive you home. documented in this encounter Progress Notes Julia Tavera PA-C - 01/19/2017 10:00 AM PDTFormatting of this note might be differe nt from the original. Julia Tavera PA-C [address] [facility], [address] [place], [place] [address] FAX: [facility]ICAL MEDICINE AND REHABILITATION H&P CHIEF COMPLAINT: Chief Complaint Patient presents with Back Pain low back pain radiating down right leg HISTORY OF PRESENT ILLNESS: The patient is a 46 y.o. female being seen today for complaint s of right side low back pain with radiation into the right leg that began August of this yea r from no known injury or insult. She reports her pain has been intermittent, it waxes and wanes for no specific issue, right now she is feeling some improvement. When the pain start ed back in August she participated in PT and this did improve. For no really reason her pain worsened in December, she has a non-guided steroid injection and a tramadol injection with no relief. She then went on vacation, long car ride aggravated the pain. Since the symptoms began, she has noticed that symptoms have been stable. She describes the pain as a aching, numbing and throbbing feeling. She rates the pain as moderate currently b ut can become severe. Her symptoms worsen with prolonged standing, walking, sitting. Her sy mptoms improve with changing position often, lying down, leaning forward. The patient also describes leg symptoms that occur on right side. The leg symptoms account for greater than or equal to 75% of her symptoms. The leg symptoms are constant and the sy mptoms travels from the right low back down the right lateral hip and across the knee into t he foot. The patient does describe numbness of the right lower extremity. She does report weakness of the right leg with extreme pain. She does not have bowel and bladder dysfunction. She does not have saddle anesthesia. Treatments for these complaints have included physical therapy at [facility] PT, use of gabapentin 900mg at night which [...] joint injection which was uneffective, use of NSAIDS. Patient's medications, allergies, past medical, surgical, social and family histories were reviewed and updated as appropriate. PAST MEDICAL HISTORY: Past Medical History: Diagnosis Date Chronic constipation Chronic right-sided low back pain with right-sided sciatica 01/19/2017 Edema Hypertension Low back pain Muscle spasm of back Nicotine dependence Sacroiliitis (HCC) Right side Tobacco use PAST SURGICAL HISTORY: Past Surgical History: Procedure Laterality Date APPENDECTOMY [facility] COLONOSCOPY 01/19/2013 One polyp CURRENT MEDICATIONS: Current Outpatient Prescriptions Medication Sig Dispense Refill buPROPion (WELLBUTRIN SR) 150 mg 12 hr tablet Take 150 mg by mouth 2 times daily. CALCIUM CITRATE PO Take by mouth. famotidine (PEPCID) 20 mg tablet Take 20 mg by mouth as needed. furosemide (LASIX) 20 mg tablet Take 20 mg by mouth 2 times daily. gabapentin (NEURONTIN) 300 mg capsule Take 900 mg by mouth nightly. medroxyPROGESTERone (DEPO-PROVERA) 150 mg/mL injection (vial) Inject 150 mg into the mu scle Every 3 months. metoprolol succinate (TOPROL-XL) 25 mg 24 hr tablet Take 50 mg by mouth Daily. No current facility-administered medications for this visit. ALLERGIES: No Known Allergies SOCIAL HISTORY: The patient reports that she has been smoking Cigarettes. She started smoking about 20 ye ars ago. She has a 20.00 pack-year smoking history. She does not have any smokeless tobacco history on file. She reports that she drinks alcohol. She reports that she does not use drug s. FAMILY HISTORY: Family History Problem Relation Age [...] pain/arthritis, no Rheumatoid Arthritis PHYSICAL EXAMINATION: Vitals: 01/19/17 1012 BP: (!) 145/95 Pulse: 70 PainSc: 7 PainLoc: Back Body mass index is 39.57 kg/m. GENERAL: The patient is well developed [...] has no apparent deficits with short or nursing home memory. She has appropriate fund of knowledge Cranial nerves 2-12 appear grossly intact. REFLEX: RIGHT LEFT PATELLAR 1 2+ ACHILLES 2+ 2+ MUSCULOSKELETAL There is no tenderness in the midline of the cervical or thoracic spine. T here is no major palpable deformity of the spine. Straight leg raise was positive on right and slump-sit are negative. Arthur's [...] good disc space between vertebra. ASSESSMENT: 1. Chronic right-sided low back pain with right-sided sciatica PLAN: 1. Patient symptoms most likely resemble right side "sciatica", lumbar radiculopathy follo wing the L4 dermatome. I'd like to get a lumbar xray in flexion and extension to view any i nstability, spondylolisthesis. I'd also like to get a lumbar MRI to assess for any disc bul ge/foraminal stenosis. This will be done at [facility]. 2. Medications have been reviewed at today's visit with no changes made at this time. She has tried cyclobenzaprine, medrol dose pack, she takes 900mg gabapentin nightly which she st ates helps her sleep, but does not improve her pain. She reports oxycodone give her the mos t relief, however her PCP does not want to start her on this. 3. She has participated in PT since August, she is currently participating in PT right now. We discussed smoking cessation. I discussed with the patient that the best thing to do for back pain, nursing home, is getting to and/or maintaining an appropriate weight, core strength ening and avoiding aggravating activities by using appropriate body mechanics/ergonomics. Marylou reyez reviewed a home exercise program including aerobic conditioning, isometric core strengthen ing and gentle stretching. 4. I will call her with MRI results and treatment plan. ELECTRONICALLY SIGNED BY: Julia Tavera PA-C, 01/19/2017 CC: Sharita WiseElectronkerwin signed by Julia Tavera PA-C at 01/19/2017 11:35 AM P DTdocumented in this encounter Plan of Treatment + +---------+--------+ + + | Name | Type | Priori | Associated Diagnoses | Order Schedule | | | | ty | | | + +---------+--------+ + + | MRI Lumbar Spine wo | Imaging | Routin | Chronic | Expected: | | Contrast | | e | right-sided low back | 01/19/2017, Expires: | | | | | pain with | 01/20/2018 | | | | | right-sided sciatica | | + +---------+--------+ + + documented as of this encounter Visit Diagnoses + + | Diagnosis | + + | Chronic right-sided low back pain with right-sided sciatica | + + documented in this encounter
--- OUTSIDE RECORDS SUMMARY | ~2019-05-17 | XMS | Encounter Summary ---
Demographics + + + | Address | [address] | | | [place] [address] | + + + | Home Phone | | + + + | Preferred Language | Unknown | + + + | Marital Status | | + + + | Alevism Affiliation | 1041 | + + + | Race | Unknown | + + + | Ethnic Group | Unknown | + + + Author + + + | Author | [facility] | | | and [place] | + + + | Organization | [facility] | | [...] Team Providers + +------+ + | Care Wan Support Specialist Name | Role | Phone | + [...] May LAMB[place] | | | | | [phone] | [place] [address] | | +--------+ + + + + [...]
--- OUTSIDE RECORDS SUMMARY | ~2019-05-17 | XMS | Encounter Summary ---
Demographics + + + | Address | [address] | | | [place] [address] | + + + | Home Phone | | + + + | Preferred Language | Unknown | + + + | Marital Status | | + + + | Yarsanism Affiliation | 1041 | + + + | Race | Unknown | + + + | Ethnic Group | Unknown | + + + Author + + + | Author | [facility] | | | and [place] | + + + | Organization | [facility] | | | [...] Team Providers + +------+ + | Care Pourer Crane Ladle Name | Role | Phone | + [...] | | | | sciatica | [place] | [id number] | | | | | Procedures | [address] | Phone: | | | | | MRI Lumbar | Phone: | [phone] | | | | | Spine wo | [phone] | Fax: | | | | | Contrast | Fax: | [phone] | | | | | Faxed 01/21 | [phone] | | +--------+--------+ + + + + [...] | | n | , not | [facility], | [facility] | | | | | elsewhere | [address] | [place] | | | | | classified | [place], | [address] Phone: | | | | | (WNW) | [place] [address] | [phone] | | | | | | Phone: | Fax: | | | | | | [phone] | [phone] | | | | | | Fax: | | | | | | | [phone] | | +--------+--------+ + + + + [...] back pain with | | | | [place], | [address] | right-sided sciatica | | | | [place] [address] | [place] [address] | | | | | [phone] | [phone] | | | | | | | [...] of blood sugars if you are diabetic. 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 For all procedur es it is recommended that someone else drive you home. documented in this encounter Progress Notes Julia Tavera PA-C - 01/19/2017 10:00 AM PDTFormatting of this note might be differe nt from the original. Julia Tavera PA-C [address] [facility], [address] [place], [place] [address] FAX: PHYSICAL MEDICINE AND REHABILITATION H&P CHIEF [...] these complaints have included physical therapy at [facility] PT, use of gabapentin 900mg at [...] Surgical History: Procedure Laterality Date APPENDECTOMY [facility] COLONOSCOPY 01/19/2013 One polyp CURRENT MEDICATIONS: [...] has no apparent deficits with short or half-way memory. She has appropriate fund of knowledge [...] ge/foraminal stenosis. This [facility] be done at [facility]. 2. Medications have been reviewed at today's [...] best thing to do for back pain, half-way, is getting to and/or maintaining an appropriate [...]
--- OUTSIDE RECORDS SUMMARY | ~2019-05-17 | XMS | Encounter Summary ---
Demographics + + + | Address | [address] | | | [place] [address] | + + + | Home Phone | | + + + | Preferred Language | Unknown | + + + | Marital Status | | + + + | Anabaptism Affiliation | 1041 | + + + | Race | Unknown | + + + | Ethnic Group | Unknown | + + + Author + + + | Author | [facility] | | | and [place] | + + + | Organization | [facility] | | | [...] Team Providers + +------+ + | Care Wave Guide Assembler Name | Role | Phone | [...] S | results) | | | | [address] [address], | [address], [address] | | | | | [place] [address] | [place] [address] | | | | | [phone] | [phone] | | | | | | | [...]
--- OUTSIDE RECORDS SUMMARY | ~2019-05-17 | XMS | Encounter Summary ---
Demographics + + + | Address | [address] | | | [place] [address] | + + + | Home Phone | | + + + | Preferred Language | Unknown | + + + | Marital Status | | + + + | Gnosticist Affiliation | 1041 | + + + | Race | Unknown | + + + | Ethnic Group | Unknown | + + + Author + + + | Author | [facility] | | | and [place] | + + + | Organization | [facility] | | | and [...] Providers + +------+ + | Care Public Address Servicer Name | Role | Phone | + [...] | Lumbar | [place], | [address] | | | | | radiculopath | Ha Trivedi MD | [place], | | | | | y | [address] | [place] | | | | | Procedures | [place] | [address] | | | | | [place] INJECT | [place], [place] | Phone: | | | | | ANES/STEROID | [address] | [phone] | | | | | FORAMEN | Phone: | Fax: | | | | | LUMBAR/SACRA | [phone] | [phone] | | | | | [address] IMG | Fax: | | | | | | GUIDE ,1 | [phone] | | | | | | [place] | | | | | | | [...] + + | 05/10/ | Hospital | [facility] | Mignon Serrano | Lumbar radiculopathy | | 2020 | Encounter | MED CTR XRAY [address] | [address]AMZAH P[address]an [address] | | | | | [place] | [facility] | | | | | [place] [address] | [address] [place], [place] | | | | | [phone] | [address] | | | | | | | | | | | | Identification Officer, [facility] | | +--------+ + + + [...]
--- OUTSIDE RECORDS SUMMARY | ~2019-05-17 | XMS | Encounter Summary ---
Demographics + + + | Address | [address] | | | [place] [address] | + + + | Home Phone | | + + + | Preferred Language | Unknown | + + + | Marital Status | | + + + | Caodaism Affiliation | 1041 | + + + | Race | Unknown | + + + | Ethnic Group | Unknown | + + + Author + + + | Author | [facility] | | | and [place] | + + + | Organization | [facility] | | | [...] Providers + +------+ + | Care Manager Ct Name | Role | Phone | + +------+ + | Sharita Wise | PCP | | + +------+ + Reason for Visit +--------+ + | Reason | Comments | +--------+ + | Other | instructions for physical therapy | +--------+ + Encounter Details +--------+ + + + + | Date | Type | Department | Care Team | Description | +--------+ + + + + | 01/19/ | Telephone | [facility] [place] | Ayse, | Other (instructions | | 2017 | | PHYSIATRY [address] | [address]ZAH [address] | for physical | | | | [place], | [address], [address] | therapy) | | | | [place] [address] | [place] [address] | | | | | [phone] | [phone] | | | | | | | [...]
--- OUTSIDE RECORDS SUMMARY | ~2019-05-17 | XMS | Encounter Summary ---
Demographics + + + | Address | [address] | | | [place] [address] | + + + | Home Phone | | + + + | Preferred Language | Unknown | + + + | Marital Status | | + + + | Muslim Affiliation | 1041 | + + + | Race | Unknown | + + + | Ethnic Group | Unknown | + + + Author + + + | Author | [facility] | | | and [place] | + + + | Organization | [facility] | | | [...] Team Providers + +------+ + | Care Health Club Attendant Name | Role | Phone | + [...] | | | | | [place], | [address] Phone: | | | | | | [place] [address] | [phone] | | | | | | Phone: | Fax: | | | | | | [phone] | [phone] | | | | | | Fax: | | | | | | | [phone] | | + +--------+ + + + [...] (Primary Dx); [address] | | | | [place], | [address] | of lumbar disc | | | | [place] [address] | [address] [place], [place] | without myelopathy; | | | | [phone] | [address] | Cervical | | | | | [...] of the procedure you must provide a car pick up driver to take you home. For all procedur es it is recommended that someone else drive you home. documented in this encounter Progress Notes Mignon Serrano PA-C - 02/27/2019 2:20 PM PDTFormatting of this note might be diffe rent from the original. Zhane Serrano PA-C [address] [facility], [address] [place], [place] [address] FAX: PHYSICAL MEDICINE AND REHABILITATION H&P CHIEF [...] these complaints have included physical therapy at [facility], use of gabapentin 900mg at night [...] Surgical History: Procedure Laterality Date APPENDECTOMY 2000 [facility] COLONOSCOPY 01/19/2013 One polyp CURRENT MEDICATIONS: [...] has no apparent deficits with short or payroll assistant memory. She has appropriate fund of knowledge [...]
--- OUTSIDE RECORDS SUMMARY | ~2019-05-17 | XMS | Encounter Summary ---
Demographics + + + | Address | [address] | | | [place] [address] | + + + | Home Phone | | + + + | Preferred Language | Unknown | + + + | Marital Status | | + + + | Yazdanism Affiliation | 1041 | + + + | Race | Unknown | + + + | Ethnic Group | Unknown | + + + Author + + + | Author | [facility] | | | and [place] | + + + | Organization | [facility] | | | and [place] | + [...] Team Providers + +------+ + | Care Galley Hand Name | Role | Phone | + +------+ + | Sharita Wise | PCP | | + +------+ + Encounter Details +--------+ + + + + | Date | Type | Department | Care Team | Description | +--------+ + + + + | 01/19/ | Hospital | [facility] | Ayse, | Chronic right-sided | | 2017 | Encounter | MED CTR XRAY [address] | [address] | low back pain with | | | | [place] | [address] | right-sided sciatica | | | | [place] [address] | [place] [address] | | | | | [phone] | [phone] | | | | | | | [...] + + + | XR LUMBAR SPINE 2 OR | Routin | 01/19/2017 | Chronic | Results for this | | 3 VW | e | 11:50 AM | right-sided low back | procedure are in the | | | | PDT | pain with | results section. | | | | | right-sided sciatica | | + +--------+ + + + documented in this encounter Results XR Lumbar Spine 2 or 3 Vw (01/19/2017 11:50 AM PDT) + + | Specimen | + + | | + + + + + | Narrative | Performed At | + + + | XR LUMBAR SPINE 2 OR 3 VW 01/19/2017 11:50 AM HISTORY: chronic | [facility] | | right side low back pain, radiation L4, L5 dermatome. COMPARISON: | | | 12/29/2016. FINDINGS: Mild spondylosis is present. No instability | | | is visualized during flexion and extension. Posterior displacement is | | | seen of the coccyx relative to the sacrum that could be due to old | | | injury. Bone mineralization is normal. Vertebral body height are | | | preserved with no evidence for compression fractures. Mild disc | | | narrowing are at L3-4 and L4-5. Multilevel facet sclerosis and | | | hypertrophy are noted. Visualized ribs and pelvic osseous structures | | | show no acute findings. Soft tissue structures are unremarkable. | | | IMPRESSION - Degenerative changes, no instability. Posterior | | | displacement of coccyx relative to the sacrum that could be due to old | | | injury. Dictated and Signed by: Osmar Eli MD | | | Electronically signed: 01/19/2017 1:12 PM | | + + + + + | Procedure Note | + + | Joni, Rad Results In - 01/19/2017 1:15 PM PDT XR LUMBAR SPINE 2 OR 3 VW 01/19/2017 | | 11:50 AMHISTORY: chronic right side low back pain, radiation L4, L5 | | dermatome.COMPARISON: 12/29/2016.FINDINGS:Mild spondylosis is present. No instability is | | visualized during flexion andextension. Posterior displacement is seen of the coccyx | | relative to the sacrumthat could be due to old injury. Bone mineralization is normal. | | Vertebral bodyheight are preserved with no evidence for compression fractures. Mild | | discnarrowing are at L3-4 and L4-5. Multilevel facet sclerosis and hypertrophy arenoted. | | Visualized ribs and pelvic osseous structures show no acute findings.Soft tissue | | structures are unremarkable.IMPRESSION -Degenerative changes, no instability.Posterior | | displacement of coccyx relative to the sacrum that could be due to oldinjury.Dictated | | and Signed by: Osmar Eli MD Electronically signed: 01/19/2017 1:12 PM | |narrowing are at L3-4 and L4-5. Multilevel facet sclerosis and hypertrophy are | |noted. Visualized ribs and pelvic osseous structures show no acute findings. | |Soft tissue structures are unremarkable. | | | |IMPRESSION - | |Degenerative changes, no instability. | | | |Posterior displacement of coccyx relative to the sacrum that could be due to old | |injury. | | | |Dictated and Signed by: Osmar Eli MD | | Electronically signed: 01/19/2017 1:12 PM | + + + +---------+ + + | Performing | Address | City/State[facility] | Phone Number | | Organization | | | | + +---------+ + + | [facility] | | | | + +---------+ + + documented in this encounter Visit Diagnoses + + | Diagnosis | + + | Chronic right-sided low back pain with right-sided sciatica | + + documented in this encounter"
--- OUTSIDE RECORDS SUMMARY | ~2019-05-17 | XMS | Encounter Summary ---
Demographics + + + | Address | [address] | | | [place] [address] | + + + | Home Phone | | + + + | Preferred Language | Unknown | + + + | Marital Status | | + + + | Judaism Affiliation | 1041 | + + + | Race | Unknown | + + + | Ethnic Group | Unknown | + + + Author + + + | Author | [facility] | | | and [place] | + + + | Organization | [facility] | | | [...] Team Providers + +------+ + | Care Load Planner Name | Role | Phone | + [...] [address] | | | | | [place], | [facility] | | | | | [place] [address] | [address] [place], [place] | | | | | [phone] | [address] | | | | | | | [...]
--- OUTSIDE RECORDS SUMMARY | ~2019-05-17 | XMS | Encounter Summary ---
Demographics + + + | Address | [address] | | | [place] [address] | + + + | Home Phone | | + + + | Preferred Language | Unknown | + + + | Marital Status | | + + + | Buddhism Affiliation | 1041 | + + + | Race | Unknown | + + + | Ethnic Group | Unknown | + + + Author + + + | Author | [facility] | | | and [place] | + + + | Organization | [facility] | | | [...] Team Providers + +------+ + | Care Plaster Machine Tender Name | Role | Phone [...] [address] | | | | | [place], | [facility] | | | | | [place] [address] | [address] [place], [place] | | | | | [phone] | [address] | | | | | | | [...]
--- OUTSIDE RECORDS SUMMARY | ~2019-05-17 | XMS | Encounter Summary ---
Demographics + + + | Address | [address] | | | [place] [address] | + + + | Home Phone | | + + + | Preferred Language | Unknown | + + + | Marital Status | | + + + | Catholic Affiliation | 1041 | + + + | Race | Unknown | + + + | Ethnic Group | Unknown | + + + Author + + + | Author | [facility] | | | and [place] | + + + | Organization | [facility] | | | [...] Providers + +------+ + | Care Hand Alterations Tailor Name | Role | Phone | + +------+ + | Sharita Wise | PCP | | + +------+ + Encounter Details +--------+ + + + + | Date | Type | Department | Care Team | Description | +--------+ + + + + | 01/19/ [facility] | Ayse, | Chronic right-sided | | 2017 | Encounter | MED CTR XRAY [address] | [address] | low back pain with | | | | [place] | [address] | right-sided sciatica | | | | [place] [address] | [place] [address] | | | | | [phone] | [phone] | | | | | | | [...] + + | Performing | Address | City/State/[facility] | Phone Number | | Organization | | | | + +---------+ + + | [facility] | | | | + +---------+ + + documented in this encounter Visit Diagnoses + + | Diagnosis | + + | Chronic right-sided low back pain with right-sided sciatica | + + documented in this encounter"
--- OUTSIDE RECORDS SUMMARY | ~2019-05-17 | XMS | Encounter Summary ---
Demographics + + + | Address | [address] | | | [place] [address] | + + + | Home Phone | | + + + | Preferred Language | Unknown | + + + | Marital Status | | + + + | Nondenominational Affiliation | 1041 | + + + [...] Team Providers + +------+ + | Care Extracorporeal Circulation Specialist Name | Role | Phone | [...] [address] | | | | | [place], | [facility] | | | | | [place] [address] | [address] [place], [place] | | | | | [phone] | [address] | | | | | | | [...]
--- OUTSIDE RECORDS SUMMARY | ~2019-05-17 | XMS | Encounter Summary ---
Demographics + + + | Address | [address] | | | [place] [address] | + + + | Home Phone | | + + + | Preferred Language | Unknown | + + + | Marital Status | | + + + | Orthodox Affiliation | 1041 | + + + | Race | Unknown | + + + | Ethnic Group | Unknown | + + + Author + + + | Author | [facility] | | | and [place] | + + + | Organization | [facility] | | [...] Team Providers + +------+ + | Care Concrete Finishing Machine Operator Name | Role | Phone | + [...] + | 09/26/ | Telephone | [facility] | Ayse, | Follow-up | | 2017 | | PHYSIATRY [address] | [address] | | | | | [place], | [address] | | | | | [place] [address] | [place] [address] | | | | | [phone] | [phone] | | | | | | | [...]
--- OUTSIDE RECORDS SUMMARY | ~2019-05-17 | XMS | Encounter Summary ---
Demographics + + + | Address | [address] | | | [place] [address] | + + + | Home Phone | | + + + | Preferred Language | Unknown | + + + | Marital Status | | + + + | Hindu Affiliation | 1041 | + + + | Race | Unknown | + + + | Ethnic Group | Unknown | + + + Author + + + | Author | [facility] | | | and [place] | + + + | Organization | [facility] | | [...] Team Providers + +------+ + | Care Station Captain Name | Role | Phone | + [...] | | without | [address] | [address] Phone: | | | | | myelopathy | [place] | [phone] | | | | | | [address] | Fax: | | | | | | Phone: | [phone] | | | | | | [phone] | | | | | | | Fax: | | | | | | | [phone] | | +--------+ + + + + [...] - right L4/L5; | | | | [place], | [address] | Bulge of lumbar disc | | | | [place] [address] | [place] [address] | without myelopathy | | | | [phone] | [phone] | | | | | | | [...] + + | Performing | Address | City/State/[facility] | Phone Number | | Organization | [...]
--- OUTSIDE RECORDS SUMMARY | ~2019-05-17 | XMS | Encounter Summary ---
Demographics + + + | Address | [address] | | | [place] [address] | + + + | Home Phone | | + + + | Preferred Language | Unknown | + + + | Marital Status | | + + + | Anabaptist Affiliation | 1041 | + + + | Race | Unknown | + + + | Ethnic Group | Unknown | + + + Author + + + | Author | [facility] | | | and [place] | + + + | Organization | [facility] | | | [...] Team Providers + +------+ + | Care Resident Care Coordinator Name | Role | Phone | + [...] | for physical | | | | [place], | [address] | therapy) | | | | [place] [address] | [place] [address] | | | | | [phone] | [phone] | | | | | | | [...]
--- OUTSIDE RECORDS SUMMARY | ~2019-05-17 | XMS | Encounter Summary ---
Demographics + + + | Address | [address] | | | [place] [address] | + + + | Home Phone | | + + + | Preferred Language | Unknown | + + + | Marital Status | | + + + | Cheondoism Affiliation | 1041 | + + + | Race | Unknown | + + + | Ethnic Group | Unknown | + + + Author + + + | Author | [facility] | | | and [place] | + + + | Organization | [facility] | | | [...] Team Providers + +------+ + | Care Solar Manager Name | Role | Phone | + [...] [address] | | | | | [place], | [address] | | | | | [place] [address] | [place] [address] | | | | | [phone] | [phone] | | | | | | | [...]
--- OUTSIDE RECORDS SUMMARY | ~2019-05-17 | XMS | Encounter Summary ---
Demographics + + + | Address | [address] | | | [place] [address] | + + + | Home Phone | | + + + | Preferred Language | Unknown | + + + | Marital Status | | + + + | Jewish Affiliation | 1041 | + + + | Race | Unknown | + + + | Ethnic Group | Unknown | + + + Author + + + | Author | [facility] | | | and [place] | + + + | Organization | [facility] | | | [...] Team Providers + +------+ + | Care Dealer Compliance Representative Name | Role | Phone | + [...] | | | | | | | [address] | | +--------+--------+ + + + + Encounter Details +--------+ + + + + | Date | Type | Department | Care Team | Description | +--------+ + + + + | 01/28/ | Imaging | [facility] | Provider, | | | 2017 | Exam | MED CTR EXTERNAL | MD [address] | | | | | IMAGING | [place] | | | | | [phone] | [place] [address] | | +--------+ + + + + [...]
[~2019-05-17 08:57] MED LIST: ALEVE220 MG PO; DEPO-PROVER150 MG/ML IM; FISH OIL 500 M1 EAC1 PO; FUROSEMIDE40 MG PO; KLOR-CON 1010 MEQ PO; MIRALAX119 GM PO
--- OUTSIDE RECORDS SUMMARY | 2019-05-17 09:02 | XMS ---
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 Jay[facility] has no Care Guidelines for this patient. Yamilet VISIT COUNT (12 MO.) 1 JAME Caruso TOTAL 1 NOTE: Visits indicate total known visits. ED/UCC VISIT TRACKING (12 MO.) 05/17/2019 08:59 JAME Dawkins [place] TYPE: Emergency COMPLAINT: - POST OP LEFT SIDE/BACK PAIN INPATIENT VISIT TRACKING (12 MO.) No inpatient visits to display in this time frame [id number]
[2019-05-17] MEDS ORDERED: HYDROCHLOROTH12.5 MG PO (11:40)
[2019-05-17] MEDS ORDERED: LOSARTAN POTASS50 MG PO (11:41)
[2019-05-17] MEDS ORDERED: GABAPENTIN300 MG PO (11:41)
[2019-05-17] MEDS ORDERED: METFORMIN HCL500 MG PO (11:41)
== END 2019-05-17 09:15 | disposition home or self-care (01) ==
LOC: ED 08:57
DX: G89.18 Other acute postprocedural pain (principal)

== ENCOUNTER 2021-08-01 07:05 | Day surgery (SDC) | payer OTHER ==
[~2021-08-01] VITALS: Ht 165.1 cm; Wt 102.2 kg
[~2021-08-01 07:05] MED LIST changes: +ESCITALOPRAM OX20 MG PO; +GABAPENTIN300 MG PO; +HYDROCHLOROTH12.5 MG PO; +LOSARTAN POTASS50 MG PO; +METFORMIN HCL500 MG PO; +ONDANSETRON ODT8 MG PO; +TRULICITY1.5 MG/0.5
--- NOTE | 2021-08-03 11:19 | OR ---
[facility] [address] [place], [place] [address] Signed DATE OF OPERATION: 08/01/2021 SURGEON: Salvador Leung MD PREOPERATIVE DIAGNOSES: 1. Persistent diarrhea, episodic constipation. 2. History of polyps of colon (five years ago). POSTOPERATIVE DIAGNOSES: Mild inflammatory changes of right colon (edema mostly), otherwise normal. PROCEDURE: Total colonoscopy to cecum with intubation of ileum and biopsy of ileum, cecum, left colon, and rectum. ANESTHESIA: Intravenous sedation, fentanyl 100 mcg and Versed 5 mg. INDICATIONS: This 50-year-old white woman is a patient of Dr. 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 She underwent colonoscopy approximately five years ago by Dr. Darian Leyva for "abdominal problems," found to have at least one polyp, which was excised. She has a longstanding history of digestive problems including constipation alternating with diarrhea and episodes of extreme fecal urgency. She has had no associated bleeding. She does have diabetes, for which she takes metformin, adjustment of that dose has had no impact of improvement on her symptoms. She has no family history of colitis, though her mother had similar symptoms and may have had a colitis problem that she is unaware of. She is admitted at this time to undergo colonoscopy, anticipating and also biopsies to assess for colitis or other abnormalities that may account for symptoms. FINDINGS: The prep was good. Complete colonoscopy was undertaken of the cecum. Intubation of the ileum was accomplished as well. There was mild edema of the right colon, but no sign of actual ulceration or obvious colitis. Biopsies were obtained of the cecum, the ileum, the left colon, and the rectum. There was no evidence of recurrent polyp, no diverticulosis. DESCRIPTION OF PROCEDURE: The patient was brought to the endoscopy suite and placed in lateral decubitus position, Electronically Signed By: SALVADOR LEUNG MD 08/03/21 1119 PATIENT NAME: HOWARD WILLIAMSON OPERATIVE REPORT DATE OF : 68 REPORT #: [id number] PHYSICIAN: SALVADOR LEUNG MD PCP: ANA LARA MD REPORT IS CONFIDENTIAL AND NOT TO BE RELEASED WITHOUT AUTHORIZATION [facility] [address] [place], [place] [address] Signed given intravenous sedation to the point of slurred speech and nystagmus. Full cardiopulmonary monitoring was maintained. Digital rectal examination was normal. An Olympus video colonoscope was passed into the rectum and manipulated throughout the colon ultimately intubating the cecum. The cecum and right colon had a somewhat edematous appearance, there was no ulceration. The scope was advanced into the ileum, a short distance allowing for biopsy of the ileum, but it appeared normal. The scope was withdrawn and biopsies then taken of the cecum. Careful withdrawal of scope showed no sign of other abnormality. Biopsies were taken of the left colon and rectum, however. The scope was removed. The patient was taken to the recovery room in good condition. CONCLUDING DIAGNOSIS: Mild edematous change of right colon of uncertain clinical significance; consideration for microscopic colitis is made on the basis of the current findings. We will need to review the pathology report to make that determination. I will see her back in the office in a month or so and review those biopsy reports and design a plan that may improve her situation. Salvador Leung MD JM/MODL /[id number] cc: Dr. Ana Lara Copies: ~ Electronically Signed By: SALVADOR LEUNG MD 08/03/21 1119 PATIENT NAME: HOWARD WILLIAMSON OPERATIVE REPORT DATE OF : 68 REPORT #: [id number] PHYSICIAN: SALVADOR LEUNG MD PCP: ANA LARA MD REPORT IS CONFIDENTIAL AND NOT TO BE RELEASED WITHOUT AUTHORIZATION
--- NOTE | 2021-08-05 14:02 | PATH ---
[facility] [address] [place], [place] [address] Signed SPECIMEN(S): A CECAL BIOPSY SPECIMEN(S): B TERMINAL ILEUM BIOPSY SPECIMEN(S): C SIGMOID BIOPSY SPECIMEN(S): D RECTAL BIOPSY SPECIMEN SOURCE: A. CECAL BIOPSY B. TERMINAL ILEUM BIOPSY C. SIGMOID BIOPSY D. RECTAL BIOPSY CLINICAL HISTORY: History of colon polyps. FINAL PATHOLOGIC DIAGNOSIS: A. Cecum, biopsy: - Colonic mucosa with no significant pathologic changes. B. Terminal ileum, biopsy: - Small-bowel mucosa with no significant pathologic changes. C. Colon, sigmoid, biopsy: - Colonic mucosa with no significant pathologic changes. D. Rectum, biopsy: - Colonic mucosa with no significant pathologic changes. BRP:[facility]:C2NR MICROSCOPIC EXAMINATION: Histologic sections of all submitted blocks are examined by light microscopy. These findings, together with the gross examination, support the pathologic diagnosis. GROSS DESCRIPTION: Four specimens are received in four containers, labeled "JW." A. The specimen, labeled "JW, cecum," is received in formalin and consists of three quiroz soft tissue fragments that measure 0.2 to 0.3 cm in greatest dimension. The specimen is entirely submitted in cassette (A1). B. The specimen, labeled "JW, terminal ileum," is received in formalin and consists of two quiroz soft tissue fragments that measure 0.3 to 0.4 cm in greatest dimension. The specimen is entirely submitted in cassette (B1). C. The specimen, labeled "JW, sigmoid," is received in formalin and consists PATIENT NAME: HOWARD WILLIAMSON PATHOLOGY DATE OF : 68 REPORT #: [id number] PHYSICIAN: MONA HUGGINS PCP: REINA LARA MD REPORT IS CONFIDENTIAL AND NOT TO BE RELEASED WITHOUT AUTHORIZATION [facility] [address] [place], [place] [address] Signed of two quiroz soft tissue fragments that measure 0.3 cm in greatest dimension. The specimen is entirely submitted in cassette (C1). D. The specimen, labeled "JW, rectum," is received in formalin and consists of one quiroz soft tissue fragment that measures 0.3 cm in greatest dimension. The specimen is entirely submitted in cassette (D1). AT (under the direct supervision of a pathologist) The Gross Description was prepared using a voice recognition system. The report was reviewed for accuracy; however, sound-alike word errors, addition and/or deletions may occur. If there is any question about this report, please contact Client Services. PERFORMING LABORATORY: The technical component was performed by [facility], [address] [place] [address] (Investment Analyst: Renae Gonzales MD; CLIA# [id number]). The professional interpretation was performed by [facility], [facility], [address] [place] [place] [address] (CLIA#: [id number]). Diagnostician: Jose Murray MD Pathologist Electronically Signed 08/05/2021 Copies: ~ PATIENT NAME: HOWARD WILLIAMSON PATHOLOGY DATE OF : 68 REPORT #: [id number] PHYSICIAN: MONA HUGGINS PCP: REINA LARA MD REPORT IS CONFIDENTIAL AND NOT TO BE RELEASED WITHOUT AUTHORIZATION
== END 2021-08-01 09:25 | disposition home or self-care (01) ==
LOC: DS 07:05 → OPS 07:05 → DS 07:30 → OPS 09:25 → DS 08-11 06:45
PROVIDERS: ATTEND Surgery
PROC: 0DBH8ZX Excision of Cecum, Via Natural or Artificial Opening Endoscopic, Diagnostic (ICD-10-PCS; 2021-08-01)
PROC: 0DBP8ZX Excision of Rectum, Via Natural or Artificial Opening Endoscopic, Diagnostic (ICD-10-PCS; 2021-08-01)
PROC: 0DBB8ZX Excision of Ileum, Via Natural or Artificial Opening Endoscopic, Diagnostic (ICD-10-PCS; 2021-08-01)
PROC: 0DJD8ZZ Inspection of Lower Intestinal Tract, Via Natural or Artificial Opening Endoscopic (ICD-10-PCS; principal; 2021-08-01 07:45)
DX: R19.7 Diarrhea, unspecified (principal); K59.00 Constipation, unspecified; E11.9 Type 2 diabetes mellitus without complications; I10 Essential (primary) hypertension; E66.9 Obesity, unspecified; K63.9 Disease of intestine, unspecified
CPT/HCPCS: 99153; G0500; J2250; J3010; J7121

== ENCOUNTER 2022-04-19 10:08 | Emergency (ER) | payer OTHER ==
[~2022-04-19] VITALS: Ht 165.1 cm; Wt 102.1 kg
--- OUTSIDE RECORDS SUMMARY | 2022-04-19 10:10 | XMS ---
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 Yamilet VISIT COUNT (12 MO.) 2 [facility] TOTAL 2 NOTE: Visits indicate total known visits. ED/UCC VISIT TRACKING (12 MO.) 04/19/2022 10:08 [facility] [place] TYPE: Emergency COMPLAINT: - ABDOMINAL PAIN 05/27/2021 15:43 [facility] [place] TYPE: Emergency COMPLAINT: - N/V, FEVER, BACK PAIN DIAGNOSES: - Lumbago with sciatica, left side - penitentiary (current) use of oral hypoglycemic drugs - Other nursing home (current) drug therapy - Nicotine dependence, unspecified, uncomplicated - Acute gastritis without bleeding - Sciatica, left side - Left lower quadrant pain INPATIENT VISIT TRACKING (12 MO.) No inpatient visits to display in this time frame [email or web address]
[2022-04-19] MEDS ORDERED: DOXYCYCLINE HY100 MG PO (13:56)
== END 2022-04-19 14:05 | disposition home or self-care (01) ==
LOC: ED 10:08
DX: R19.05 Periumbilic swelling, mass or lump (principal); F17.200 Nicotine dependence, unspecified, uncomplicated; Z79.899 Other long term (current) drug therapy; Z79.84 Long term (current) use of oral hypoglycemic drugs
CPT/HCPCS: 36415; 74177; 80053; 85025; 99284-25; Q9967

== ENCOUNTER 2025-03-24 13:28 | Emergency (ER) | payer OTHER ==
[~2025-03-24] VITALS: Ht 165.1 cm; Wt 102.7 kg
[~2025-03-24 13:28] MED LIST changes: +DOXYCYCLINE HY100 MG PO
[2025-03-24 14:09] LABS: BASOPHILS 0.4 % (0.1-1.2); EOSINOPHILS 1.0 % (0.7-5.8); LYMPHOCYTES 28.1 % (19.3-51.7); MCH 28.6 PG (25.6-32.2); MCHC 32.8 g/dL (32.2-35.5); MCV 87.1 fL (79.4-94.8); MONOCYTES 5.4 % (4.7-12.5); NEUTROPHILS 64.9 % (34.0-71.1); RBC 5.11 M/uL (3.93-5.22)
[2025-03-24] MEDS ORDERED: ROSUVASTATIN CA20 MG PO (14:20)
[2025-03-24] MEDS ORDERED: ESOMEPRAZOLE MA40 MG PO (14:20)
[2025-03-24] MEDS ORDERED: MULTI VITAMIN1 EACH PO (14:21)
[2025-03-24] MEDS ORDERED: METFORMIN HCL500 M1 PO (14:21)
[2025-03-24] MEDS ORDERED: POTASSIUM CHLO20 ME2 PO (14:22)
[2025-03-24] MEDS ORDERED: VITAMIN B COMP1 EACH PO (14:22)
[2025-03-24 14:27] LABS: BLOOD/HGB, URINE NEGATIVE (Negative); KETONE, URINE TRACE (Negative); LEUK ESTERASE, URINE NEGATIVE (negative); NITRITE, URINE NEGATIVE (negative)
[2025-03-24 14:30] LABS: ALT (SGPT) 45.0 U/L (14-59); AST (SGOT) 23.0 U/L (15-37); GLOMERULAR FILTRATION RATE,EST 64.0 mL/min (>60); PROTEIN, TOTAL 8.0 g/dL (6.4-8.2); UREA NITROGEN 17.0 mg/dL (7-18)
[2025-03-24 14:32] LABS: INR 0.9 (0.80-1.30); PROTIME 11.5 Sec (11.2-14.2)
[2025-03-24 16:20] VITALS: BP 115/84
--- NOTE | 2025-03-24 21:32 | EKG ---
[facility] [address] [facility] [place] [address] Signed Normal sinus rhythm Left axis deviation Possible Anterolateral infarct , age undetermined Abnormal ECG When compared with ECG of 14-NOV-2019 07:52, Borderline criteria for Anterolateral infarct are now present Nonspecific T wave abnormality now evident in Anterolateral leads Confirmed by Rodrigue Bronson MD () on 03/24/2025 9:31:57 PM Electronically Signed By: RODRIGUE BRONSON MD 03/24/252131 PATIENT NAME: HOWARD WILLIAMSON Electrocardiogram DATE OF : 68 PHYSICIAN: RODRIGUE BRONSON MD REPORT #: [id number] REPORT IS CONFIDENTIAL AND NOT TO BE RELEASED WITHOUT AUTHORIZATION
== END 2025-03-24 16:21 | disposition home or self-care (01) ==
LOC: ED 13:28
PROVIDERS: Emergency Medicine
DX: G51.0 Bell's palsy (principal); E11.65 Type 2 diabetes mellitus with hyperglycemia; F17.200 Nicotine dependence, unspecified, uncomplicated; Z79.84 Long term (current) use of oral hypoglycemic drugs; Z79.899 Other long term (current) drug therapy
CPT/HCPCS: 36415; 70450; 70496; 70498; 71045; 80053; 81003; 82800; 83036; 85025; 85610; 85730; 93005; 93010; 99284-25; Q9967